=== PATIENT | male | born 1965 | race Caucasian/White ===

== ENCOUNTER → 2016-11-26 | Outpatient (CLI) | payer MEDICARE, MEDICAID ==
[~2016-11-26] MED LIST: ASPI81TA2 PO; LORA10TA7; OMEP-29; QUET150T3 PO; QUET25TA19; RANI150T7 PO
--- NOTE | 2016-11-26 14:30 | DI ---
Indication: ITS.REASON: M54.42 LUMBAGO W/ SCIATICA, LEFT SIDE LUMBAR SPINE COMP W/O BEND: Comparison: None Technique: AP lateral coned down lateral and both oblique views Findings: Patient shows mild disc space narrowing particularly at L1-4-5 with mild changes at L3-4. No acute vertebral body fractures are seen. No significant malalignments are noted. Oblique view showed mild degenerative changes in the posterior facet joints particularly at L45 and L5-S1 levels. Impression: Mild degenerative changes particularly at the L4-5 disc space level with some narrowing. No significant fractures or malalignments noted. .
== END ==
LOC: IMA 10:42
PROVIDERS: ATTEND Internal Medicine
DX: M54.42 Lumbago with sciatica, left side (principal); M51.36 Other intervertebral disc degeneration, lumbar region

== ENCOUNTER 2016-12-01 13:32 | Emergency (ER) | payer MEDICARE, MEDICAID ==
[~2016-12-01] VITALS: Ht 162.6 cm; Wt 65.5 kg
[~2016-12-01 13:32] MED LIST changes: -ASPI81TA2 PO; -QUET150T3 PO; -RANI150T7 PO
[2016-12-01 13:35] VITALS: Ht 162.6 cm; Wt 65.5 kg
[2016-12-01] MEDS ORDERED: NORMAL SALINE 1,000 ML IV ONE (13:57)
[2016-12-01] MEDS ORDERED: NITROGLYCERIN 0.4 MG SUBLINGUAL TABLET SL PRN (14:00)
[2016-12-01] MEDS ORDERED: ASPIRIN 81 MG CHEWABLE TABLET PO ONE (14:00)
[2016-12-01 14:05] LABS: BLOOD, URINE NEGATIVE (NEGATIVE); COLOR,URINE YELLOW (YELLOW); LEUKOCYTE ESTERASE ,URINE NEGATIVE (NEGATIVE); NITRITE,URINE NEGATIVE (NEGATIVE); UROBILINOGEN,URINE 0.2 EU/DL (NORMAL)
[2016-12-01] MEDS ORDERED: QUET150T3 PO (14:11)
[2016-12-01] MEDS ORDERED: ASPI81TA2 PO (14:11)
[2016-12-01 14:12] LABS: BASOPHILS % (AUTO) 0.5 % (0-2); EOSINOPHILS # (AUTO) 0.2 T/MM3 (0-0.5); HCT - HEMATOCRIT 44.7 % (41-53); HGB - HEMOGLOBIN 15.6 GM/DL (13.5-17.5); IMMATURE GRANULOCYTE # (AUTO) 0.06 T/MM3 (0.00-0.03); IMMATURE GRANULOCYTE % (AUTO) 0.7 % (0.0-0.5); MEAN CORPUSCULAR HGB 33.1 UUG (26-34); MEAN CORPUSCULAR HGB CONC(MCHC 34.9 GM/DL (31-37); MEAN CORPUSCULAR VOLUME 94.9 UM3 (80-100); MEAN PLATELET VOLUME 9.7 UM3 (9.4-12.4); MONOCYTES % (AUTO) 11.7 % (0-9.0); NEUTROPHILS #(AUTO)-ABSOLUTE 4.3 T/MM3 (1.8-7.7); NEUTROPHILS % (AUTO) 50.1 % (33-66); RED BLOOD COUNT 4.71 M/MM3 (4.50-5.90); WBC - WHITE BLOOD COUNT 8.6 T/MM3 (4.5-11.0)
[2016-12-01 14:15] LABS: INR 1.08 (0.77-1.03); PROTHROMBIN TIME 11.9 SEC (9.48-12.52)
[2016-12-01 14:16] LABS: ALBUMIN 4.7 G/DL (3.5-5.0); ALBUMIN/GLOBULIN RATIO 1.6 RATIO (1.1-2.2); ALKALINE PHOSPHATASE 48 U/L (38-126); ALT (SGPT) 34 U/L (21-72); ANION GAP 13 MEQ/L (5-15); AST (SGOT) 22 U/L (17-59); BUN/CREATININE RATIO 10 RATIO (6-26); CALCIUM 9.8 MG/DL (8.4-10.2); CHLORIDE 105 MEQ/L (98-107); CO2 - CARBON DIOXIDE 28 MEQ/L (22-30); CREATININE 0.9 MG/DL (0.8-1.5); GLOMERULAR FILTRATION RATE 89; GLUCOSE 108 MG/DL (75-110); POTASSIUM 3.9 MEQ/L (3.6-5); SODIUM 146 MEQ/L (134-144); TOTAL PROTEIN 7.6 G/DL (6.3-8.2)
--- OUTSIDE RECORDS SUMMARY | 2016-12-01 14:22 | XMS REPORT ---
Author Author Basim Chapman Organization [employer] Address Unknown Phone Unavailable Care Team Providers Care Soap Slabber Name Role Phone Basim Chapman CP Unavailable Allergies No Known Allergies Problems Problem Type Condition Code Onset Dates Condition Status Problem Allergic rhinitis, unspecified J30.9 Active Problem Hyperlipidemia, unspecified E78.5 Active Problem Major depressive disorder, single episode, unspecified F32.9 Active Medications No Known Medications Results No Known Results Summary Purpose eClinicalWorks Submission
--- OUTSIDE RECORDS SUMMARY | 2016-12-01 14:22 | XMS REPORT ---
Author Author Basim Chapman Organization [employer] Address Unknown Phone Unavailable Care Team Providers Care Billing Manager Name Role Phone Basim Chapman CP Unavailable Allergies No Known Allergies Problems Problem Type Condition Code Onset Dates Condition Status Problem Allergic rhinitis, unspecified J30.9 Active Problem Hyperlipidemia, unspecified E78.5 Active Problem Major depressive disorder, single episode, unspecified F32.9 Active Medications Medication Code System Code Instructions Start Date End Date Status Dosage Colace [facility] [address]-71 100 MG Orally every 12 hours Mar 30, 2016 1 capsule as needed for constipation Results No Known Results Summary Purpose eClinicalWorks Submission
--- OUTSIDE RECORDS SUMMARY | 2016-12-01 14:22 | XMS REPORT ---
Author Author Basim Chapman Organization [employer] Address Unknown Phone Unavailable Care Team Providers Care Extractions Technologist Name Role Phone Basim Chapman CP Unavailable Allergies No Known Allergies Problems Problem Type Condition Code Onset Dates Condition Status Problem Allergic rhinitis, unspecified J30.9 Active Problem Hyperlipidemia, unspecified E78.5 Active Problem Major depressive disorder, single episode, unspecified F32.9 Active Medications Medication Code System Code Instructions Start Date End Date Status Dosage BuPROPion HCl (SR) [facility] [address]-53 100 MG Orally once a day 1 tablet Seroquel XR [facility] [address]-34 150 MG Orally Once a day 1 tablet in the evening Colace [facility] [address]-03 100 MG Orally every 12 hours Mar 30, 2016 1 capsule as needed for constipation Results No Known Results Summary Purpose eClinicalWorks Submission
--- OUTSIDE RECORDS SUMMARY | 2016-12-01 14:22 | XMS REPORT ---
Author Author Basim Chapman Organization [employer] Address Unknown Phone Unavailable Care Team Providers Care Crop Consultant Name Role Phone Basim Chapman CP Unavailable Allergies, Adverse Reactions, Alerts Substance Reaction Event Type N.K.D.A. Info Not Available Non Drug Allergy Problems Problem Type Condition Code Onset Dates Condition Status Assessment Tobacco use Z72.0 Active Assessment Encounter for immunization Z23 Active Problem Allergic rhinitis, unspecified J30.9 Active Problem Hyperlipidemia, unspecified E78.5 Active Problem Major depressive disorder, single episode, unspecified F32.9 Active Assessment Constipation, unspecified K59.00 Active Assessment Anemia, unspecified D64.9 Active Assessment Hyperlipidemia, unspecified E78.5 Active Assessment Major depressive disorder, single episode, unspecified F32.9 Active Medications Medication Code System Code Instructions Start Date End Date Status Dosage BuPROPion HCl (SR) [facility] [address]-57 100 MG Orally once a day 1 tablet Colace [facility] [address]-09 100 MG Orally every 12 hours Mar 30, 2016 1 capsule as needed for constipation Seroquel XR [facility] [address]-11 150 MG Orally Once a day 1 tablet in the evening Procedures Procedure Coding System Code Date OFFICE VISIT, EST-LOW COMPLEXITY (15 MIN.) CPT-4 59409 Apr 29, 2016 Fluzone IIV4 Pfree (age 3yr & older) CPT-4 72615 Apr 29, 2016 [facility] visit Established Patient CPT-4 G0467 Apr 29, 2016 TOBACCO USE, SMOKING, ASSESS CPT-4 1000F Apr 29, 2016 ADMINISTRATION, 1ST IMMUNIZATION CPT-4 68582 Apr 29, 2016 Vital Signs Date/Time: Apr 29, 2016 Temperature 98.2 F Height 62.0 in Weight 123.4 lbs Blood Pressure Diastolic 76 mm Hg Blood Pressure Systolic 124 mm Hg Cardiac Monitoring Heart Rate 78 /min BMI 22.57 Index Oximetry 98 % Respiratory Rate 16 /min Results No Known Results Immunizations Vaccine Administration Date Fluzone IIV4 Pfree (age 3yr & older) Apr 29, 2016 Summary Purpose eClinicalWorks Submission
--- OUTSIDE RECORDS SUMMARY | 2016-12-01 14:22 | XMS REPORT ---
Author Author Basim Chapman Organization [employer] Address Unknown Phone Unavailable Care Team Providers Care Special Weapons And Tactics Officer Name Role Phone Basim Chapman CP Unavailable Allergies No Known Allergies Problems Problem Type Condition Code Onset Dates Condition Status Problem Allergic rhinitis, unspecified J30.9 Active Problem Hyperlipidemia, unspecified E78.5 Active Problem Major depressive disorder, single episode, unspecified F32.9 Active Medications No Known Medications Results No Known Results Summary Purpose eClinicalWorks Submission
--- OUTSIDE RECORDS SUMMARY | 2016-12-01 14:22 | XMS REPORT ---
Author Author Basim Chapman Organization [employer] Address Unknown Phone Unavailable Care Team Providers Care Cut Off Sawyer Name Role Phone Basim Chapman CP Unavailable Allergies, Adverse Reactions, Alerts Substance Reaction Event Type N.K.D.A. Info Not Available Non Drug Allergy Problems Problem Type Condition Code Onset Dates Condition Status Assessment Major depressive disorder, single episode, unspecified F32.9 Active Assessment Auditory hallucinations R44.0 Active Problem Hyperlipidemia, unspecified E78.5 Active Assessment Hyperlipidemia, unspecified E78.5 Active Medications Medication Code System Code Instructions Start Date End Date Status Dosage Seroquel XR [facility] [address]-47 150 MG Orally Once a day 1 tablet in the evening BuPROPion HCl (SR) [facility] [address]-98 100 MG Orally once a day 1 tablet Loratadine [facility] [address]-36 10 MG Orally Once a day 1 tablet Multivital [facility] [address] Orally not defined Seroquel [facility] [address]-63 25 MG Orally Once a day 1 tablet Fish Oil [facility] [address]-84 1000 MG Orally Once a day 1 capsule Procedures Procedure Coding System Code Date OFFICE VISIT, EST-LOW COMPLEXITY (15 MIN.) CPT-4 87709 November 18, 2015 [facility] visit Established Patient CPT-4 G0467 November 18, 2015 Vital Signs Date/Time: November 18, 2015 Temperature 97.0 F Height 62.0 in Weight 126.4 lbs Blood Pressure Diastolic 68 mm Hg Blood Pressure Systolic 114 mm Hg Cardiac Monitoring Heart Rate 76 /min BMI 23.12 Index Oximetry 98 % Respiratory Rate 16 /min Results No Known Results Summary Purpose eClinicalWorks Submission
--- OUTSIDE RECORDS SUMMARY | 2016-12-01 14:22 | XMS REPORT ---
Author Author Basim Chapman Organization [employer] Address Unknown Phone Unavailable Care Team Providers Care Reducing System Operator Name Role Phone Basim Chapman CP Unavailable Allergies, Adverse Reactions, Alerts Substance Reaction Event Type N.K.D.A. Info Not Available Non Drug Allergy Problems Problem Type Condition Code Onset Dates Condition Status Assessment Frequency of micturition R35.0 Active Assessment Nocturia R35.1 Active Assessment Painful micturition, unspecified R30.9 Active Assessment Major depressive disorder, single episode, unspecified F32.9 Active Assessment Encounter for immunization Z23 Active Medications Medication Code System Code Instructions Start Date End Date Status Dosage Seroquel XR [facility] [address]-49 150 MG Orally Once a day 1 tablet in the evening Loratadine [facility] [address]-97 10 MG Orally Once a day 1 tablet Seroquel [facility] [address]-40 25 MG Orally Once a day 1 tablet Fish Oil [facility] [address]-84 1000 MG Orally Once a day 1 capsule Flomax [facility] [address]-24 0.4 MG Orally Once a day Apr 29, 2015 Jul 28, 2015 1 capsule 30 minutes after the same meal each day Multivital [facility] [address] Orally not defined BuPROPion HCl (SR) [facility] [address]-79 100 MG Orally once a day 1 tablet Procedures Procedure Coding System Code Date OFFICE VISIT, EST-MOD. COMPLEXITY (25 MIN) CPT-4 48968 Apr 29, 2015 FLU VACCINE NO PRESERV 3 & > CPT-4 44256 Apr 29, 2015 [facility] visit Established Patient CPT-4 G0467 Apr 29, 2015 ADMINISTRATION, 1ST IMMUNIZATION CPT-4 25008 Apr 29, 2015 Vital Signs Date/Time: Apr 29, 2015 Height 62.0 in Weight 122.4 lbs Temperature 98.1 F Blood Pressure Diastolic 76 mm Hg Blood Pressure Systolic 116 mm Hg Cardiac Monitoring Heart Rate 76 /min BMI 22.38 Index Oximetry 97 % Respiratory Rate 16 /min Results Name Result Date Reference Range Unit Abnormality Flag Comprehensive Metabolic Panel (CMP) Immunizations Vaccine Administration Date Influenza shot 3 y.o. and older Apr 29, 2015 Summary Purpose eClinicalWorks Submission
--- OUTSIDE RECORDS SUMMARY | 2016-12-01 14:22 | XMS REPORT ---
Author Author Basim Chapman Organization e[employer] Address Unknown Phone Unavailable Care Team Providers Care Research Program Coordinator Name Role Phone Basim Chapman CP Unavailable Allergies No Known Allergies Problems Problem Type Condition Code Onset Dates Condition Status Assessment Painful micturition, unspecified R30.9 Active Medications Medication Code System Code Instructions Start Date End Date Status Dosage Fish Oil [facility] [address]-79 1000 MG Orally Once a day 1 capsule Seroquel XR [facility] [address]-08 150 MG Orally Once a day 1 tablet in the evening Multivital [facility] [address] Orally not defined Flomax [facility] [address]-90 0.4 MG Orally Once a day Apr 29, 2015 Jul 28, 2015 1 capsule 30 minutes after the same meal each day BuPROPion HCl (SR) [facility] [address]-99 100 MG Orally once a day 1 tablet Seroquel [facility] [address]-39 25 MG Orally Once a day 1 tablet Loratadine [facility] [address]-00 10 MG Orally Once a day 1 tablet Procedures Procedure Coding System Code Date URINE CULTURE CPT-4 69745 Apr 29, 2015 SED RATE CPT-4 34877 Apr 29, 2015 COMPLETE CBC W/AUTO DIFF WBC CPT-4 21057 Apr 29, 2015 URINALYSIS WITH MICROSCOPIC CPT-4 32597 Apr 29, 2015 PSA NO REFLEX CPT-4 88167 Apr 29, 2015 Results Name Result Date Reference Range Unit Abnormality Flag CBC With Platelet and Differential Urine Culture Summary Purpose eClinicalWorks Submission
--- OUTSIDE RECORDS SUMMARY | 2016-12-01 14:22 | XMS REPORT ---
Author Author Basim Chapman Organization e[employer] Address Unknown Phone Unavailable Care Team Providers Care Correction Officer Penitentiary Name Role Phone Basim Chapman CP Unavailable Allergies No Known Allergies Problems Problem Type Condition Code Onset Dates Condition Status Problem Allergic rhinitis, unspecified J30.9 Active Problem Hyperlipidemia, unspecified E78.5 Active Problem Major depressive disorder, single episode, unspecified F32.9 Active Medications Medication Code System Code Instructions Start Date End Date Status Dosage Colace [facility] [address]-72 100 MG Orally every 12 hours Mar 30, 2016 1 capsule as needed for constipation Results No Known Results Summary Purpose eClinicalWorks Submission
--- OUTSIDE RECORDS SUMMARY | 2016-12-01 14:22 | XMS REPORT ---
Author Author Kennedi Grayson Organization e[employer] Address Unknown Phone Unavailable Care Team Providers Care Missile Pad Mechanic Name Role Phone Kennedi Grayson CP Unavailable Allergies No Known Allergies Problems Problem Type Condition ICD-9 Code Onset Dates Condition Status Assessment Screening for lipoid disorders V77.91 Active Assessment Depressive disorder, not elsewhere classified 311 Active Medications Medication Code System Code Instructions Start Date End Date Status Dosage Fish Oil [facility] [address]-69 1000 MG Orally Once a day 1 capsule Seroquel XR [facility] [address]-96 150 MG Orally Once a day 1 tablet in the evening BuPROPion HCl (SR) [facility] [address]-74 100 MG Orally once a day 1 tablet Seroquel [facility] [address]-52 25 MG Orally Once a day 1 tablet Loratadine [facility] [address]-85 10 MG Orally Once a day 1 tablet Multivital [facility] [address] Orally not defined Procedures Procedure Coding System Code Date LIPID PANEL CPT-4 97824 January 10, 2015 CMP CPT-4 97683 January 10, 2015 Results Name Result Date Reference Range Unit Abnormality Flag In House Urinalysis, automated Summary Purpose eClinicalWorks Submission
--- OUTSIDE RECORDS SUMMARY | 2016-12-01 14:22 | XMS REPORT ---
Author Author Basim Chapman Organization [employer] Address Unknown Phone Unavailable Care Team Providers Care Transmission Worker Name Role Phone Basim Chapman CP Unavailable Allergies No Known Allergies Problems Problem Type Condition Code Onset Dates Condition Status Problem Allergic rhinitis, unspecified J30.9 Active Problem Hyperlipidemia, unspecified E78.5 Active Problem Major depressive disorder, single episode, unspecified F32.9 Active Medications Medication Code System Code Instructions Start Date End Date Status Dosage Seroquel XR [facility] [address]-50 150 MG Orally Once a day 1 tablet in the evening BuPROPion HCl (SR) [facility] [address]-51 100 MG Orally once a day 1 tablet Colace [facility] [address]-69 100 MG Orally every 12 hours Mar 30, 2016 1 capsule as needed for constipation Results No Known Results Summary Purpose eClinicalWorks Submission
--- OUTSIDE RECORDS SUMMARY | 2016-12-01 14:22 | XMS REPORT ---
Author Author Kennedi Grayson [facility] eClinicalWorks Address Unknown Phone Unavailable Care Team Providers Care Ship Laborer Name Role Phone Kennedi Grayson CP Unavailable Allergies No Known Allergies Problems Problem Type Condition ICD-9 Code Onset Dates Condition Status Assessment Depressive disorder, not elsewhere classified 311 Active Medications Medication Code System Code Instructions Start Date End Date Status Dosage Multivital [facility] [address] Orally not defined Fish Oil [facility] [address]-71 1000 MG Orally Once a day 1 capsule BuPROPion HCl (SR) [facility] [address]-29 100 MG Orally once a day 1 tablet Loratadine [facility] [address]-21 10 MG Orally Once a day 1 tablet Seroquel XR [facility] [address]-31 150 MG Orally Once a day 1 tablet in the evening Seroquel [facility] [address]-84 25 MG Orally Once a day 1 tablet Procedures Procedure Coding System Code Date TSH CPT-4 54517 January 10, 2015 COMPLETE CBC W/AUTO DIFF WBC CPT-4 89424 January 10, 2015 Results Name Result Date Reference Range Unit Abnormality Flag CBC With Platelet and Differential ----Absolute Eosinophils 0.04 20150110 0.00-0.50 10*3 ----Absolute Monocytes 0.92 20150110 0.30-1.00 10*3 ----Neutrophils 55 20150110 51-75 % ----Absolute Basophils 0.03 [id number] 0.00-0.20 10*3 ----MPV 10.5 20150110 8.8-14.8 fL ----Monocytes 14 20150110 4-11 % H ----RDW 13.3 20150110 11.5-14.5 % ----Lymphocytes 31 20150110 20-46 % ----MCHC 35.3 20150110 32.0-36.0 g/dL ----MCH 34.3 20150110 27.0-32.0 pg H ----MCV 97.0 20150110 82.0-99.0 fL ----Immature Granulocytes 0.1 [id number] 0.0-1.0 % ----Platelet Count 239 20150110 150-400 K/uL ----Absolute Lymphocytes 2.06 [id number] 0.80-3.30 10*3 ----Absolute Neutrophils 3.65 48032900 1.90-7.00 10*3 ----Eosinophils 1 [id number] 0-4 % ----Basophils 0 70115288 0-2 % ----WBC 6.7 [id number] 4.8-10.8 K/uL ----RBC 4.70 [id number] 4.60-6.20 M/uL ----HGB 16.1 20150110 14.0-18.0 g/dL ----HCT 45.6 20150110 42.0-52.0 % TSH ----TSH 0.39 20150110 0.35-4.94 uIU/mL Summary Purpose eClinicalWorks Submission
--- OUTSIDE RECORDS SUMMARY | 2016-12-01 14:22 | XMS REPORT ---
Author Author Basim Chapman Organization eClinicalWorks Address Unknown Phone Unavailable Care Team Providers Care Steamtable Attendant Railroad Name Role Phone Basim Chapman CP Unavailable Allergies No Known Allergies Problems Problem Type Condition Code Onset Dates Condition Status Problem Allergic rhinitis, unspecified J30.9 Active Problem Hyperlipidemia, unspecified E78.5 Active Problem Major depressive disorder, single episode, unspecified F32.9 Active Medications Medication Code System Code Instructions Start Date End Date Status Dosage Colace [facility] [address]-90 100 MG Orally every 12 hours Mar 30, 2016 1 capsule as needed for constipation Results No Known Results Summary Purpose eClinicalWorks Submission
--- OUTSIDE RECORDS SUMMARY | 2016-12-01 14:23 | XMS REPORT ---
Author Author Basim Chapman Organization eClinicalWorks Address Unknown Phone Unavailable Care Team Providers Care Finishing Supervisor Name Role Phone Basim Chapman CP Unavailable Allergies, Adverse Reactions, Alerts Substance Reaction Event Type N.K.D.A. Info Not Available Non Drug Allergy Problems Problem Type Condition Code Onset Dates Condition Status Problem Allergic rhinitis, unspecified J30.9 Active Problem Hyperlipidemia, unspecified E78.5 Active Problem Major depressive disorder, single episode, unspecified F32.9 Active Assessment Major depressive disorder, single episode, unspecified F32.9 Active Assessment Constipation, unspecified K59.00 Active Medications Medication Code System Code Instructions Start Date End Date Status Dosage Colace [facility] [address]-84 100 MG Orally every 12 hours Mar 30, 2016 1 capsule as needed for constipation Procedures Procedure Coding System Code Date OFFICE VISIT, EST-LOW COMPLEXITY (15 MIN.) CPT-4 29468 Mar 30, 2016 [facility] visit Established Patient CPT-4 G0467 Mar 30, 2016 Vital Signs Date/Time: Mar 30, 2016 Temperature 97.7 F Height 62.0 in Weight 117.8 lbs Blood Pressure Diastolic 60 mm Hg Blood Pressure Systolic 126 mm Hg Cardiac Monitoring Heart Rate 89 /min BMI 21.54 Index Oximetry 98 % Results No Known Results Summary Purpose eClinicalWorks Submission
--- OUTSIDE RECORDS SUMMARY | 2016-12-01 14:23 | XMS REPORT ---
Author Author eKnnedi Grayson Organization eClinicalWorks Address Unknown Phone Unavailable Care Team Providers Care Cone Picker Name Role Phone Kennedi Grayson CP Unavailable Allergies, Adverse Reactions, Alerts Substance Reaction Event Type N.K.D.A. Info Not Available Non Drug Allergy Problems Problem Type Condition ICD-9 Code Onset Dates Condition Status Assessment Screening for lipoid disorders V77.91 Active Assessment Depressive disorder, not elsewhere classified 311 Active Medications Medication Code System Code Instructions Start Date End Date Status Dosage Loratadine [facility] [address]-73 10 MG Orally Once a day 1 tablet BuPROPion HCl (SR) [facility] [address]-60 100 MG Orally once a day 1 tablet Multivital [facility] [address] Orally not defined Fish Oil [facility] [address]-74 1000 MG Orally Once a day 1 capsule Seroquel [facility] [address]-74 25 MG Orally Once a day 1 tablet Seroquel XR [facility] [address]-29 150 MG Orally Once a day 1 tablet in the evening Procedures Procedure Coding System Code Date OFFICE VISIT, CHARHOUSE WORKER-LOW COMPLEXITY (30 MIN.) CPT-4 32443 January 08, 2015 [facility] visit New Patient CPT-4 G0466 January 08, 2015 Vital Signs Date/Time: January 08, 2015 Height 62.0 in Weight 125.8 lbs Temperature 98.6 F Blood Pressure Diastolic 68 mm Hg Blood Pressure Systolic 120 mm Hg Cardiac Monitoring Heart Rate 68 /min BMI 23.01 Index Respiratory Rate 16 /min Results No Known Results Summary Purpose eClinicalWorks Submission
[2016-12-01 14:27] LABS: PROBNP 31 PG/ML (0-175)
--- NOTE | 2016-12-01 14:47 | DI ---
INDICATION: ITS.REASON: chest pain PROCEDURE: CHEST 2-VIEWS UPRIGHT (PA \T\ LAT) Encounter: Initial COMPARISON: July 25, 2009 FINDINGS: The lungs are clear without evidence of focal abnormal airspace opacity. There is no pleural effusion or pneumothorax. The heart size, mediastinal contours and pulmonary vascularity are within normal limits. There is no significant skeletal abnormality. IMPRESSION: No acute cardiopulmonary disease. .
--- NOTE | 2016-12-01 14:47 | ERPDOC ---
Departure Disposition Decision Date: December 01, 2016 Disposition Decision Time: 14:47 Disposition: 01 DISCHARGED HOME, SELF-CARE Impression Impression Impression: Primary Impression: Chest pain Additional Impression: Reflux esophagitis Severity: Moderate Condition: Improved Seen By: Physician only Referrals: ADAM ROWE MD (Family) Patient Instructions: Chest Pain (ED) Problems/Meds/Labs Reviewed?: Yes Medications reviewed and manag: Yes Additional Instructions: Ranitidine 150 mg, one tablet twice daily for reflux. Please follow up with cardiology. Dr. Cardenas is on-call. His number is [phone] Follow up care ordered?: Yes Mental Status: Alert, Oriented Scripts Ranitidine HCl (Ranitidine HCl) 150 Mg Tablet 150 MG PO BID, #60 TAB Take 1 tablet, by mouth, 2 times a day. Prov: CHELSEA AGUILAR MD 12/01/16 HPI - Cardiac General Chief Complaint: Chest Pain Stated Complaint: CHEST PAIN,LIGHTHEADEDRIGHT ARM NUMBNESS VISION [place] Time Seen by Provider: 13:57 HPI - Cardiac General Initial Comments 51-year-old male presents with chest pain. Patient had chest pain yesterday afternoon and evening after he ate some barbecue chips. He did have an episode of it this morning as well and asked to be brought in from [facility] to be seen. He states that if he eats barbecue chips he often does get heartburn. He is not taking any medication for heartburn. He is a little bit nervous about the reason for his chest pain, worrying that it might be his heart. He has no previous history of heart problems and does not smoke. Aspirin Today: 81 mg x 4 Allergies: Coded Allergies: No Known Drug Allergies (Verified Allergy, Unknown, 05/21/13) Past History Past Medical History Male: UTI Psychological: personality disorder Surgical History Denies Surgeries General: other Family History Family PMH: FOUND: other Vaccines Hx Influenza Vaccination: Yes (FALL 2011) Hx Pneumococcal Vaccination: No (UNKNOWN) Social History Smoking Status: Never smoker Alcohol Intake: none Record Review Pertinent history updated: Yes Review of Systems Cardiovascular Cardiac: see HPI Pulmonary Respiratory: see HPI GI Upper Abdomen: see HPI All other Systems All Other Systems: Reviewed and Negative Physical Exam General General Nourishment: well nourished, well developed, appears stated age, no acute distress General Body Habitus: well groomed Vitals and Pain First Documented Vital Signs Date Time Temp Pulse Resp B/P Pulse Ox O2 Delivery O2 Flow Rate FiO2 12/01/16 13:35 97.7 97 18 155/95 98 Room Air Weight: Kilograms: 65.500 Height (feet): 5 Height (inches): 4.00 Triage Pain Scale: Normal Exams: Chest/Resp: Clear all katz, with good airflow, and symmetry bilaterally CV: Regular rate and rhythm, without murmur or gallop, Pulses 2+ all extremities, capillary refill, <2 seconds all ext., no pedal edema noted Abdomen: Bowel sounds positive, soft, non-tender, non-distended, no hepatosplenomegaly, masses or bruits noted Neurologic: Patient is alert, and oriented, cranial nerves, motor/sensory/ cerebellar, exams w/o gross deficits, to observation Differential Diagnoses Considering: Acute [place], Anxiety/Panic, Angina, Atrial Fibrillation, CHF, Pericarditis, PSVT, Pulmonary Edema, Pulmonary Embolus, Ventricular Tachycardia Progress Results/Orders Orders Procedure Category Date Status Time Cbc W/Auto LAB 12/01/16 Complete Diff-Reflex Manual 13:57 Cmp - Comprehensive LAB 12/01/16 Complete Metabolic 13:57 Probnp LAB 12/01/16 Complete 13:57 Troponin I W LAB 12/01/16 Complete Hemolysis Index 13:57 INR LAB 12/01/16 Complete 13:57 Ua, Dip Wreflex LAB 12/01/16 Complete Microsc & Call Center Agent 13:57 D-Dimer LAB 12/01/16 Complete 13:57 EKG EKG 12/01/16 Taken 13:57 Chest, Pa & Lateral RAD 12/01/16 Taken 13:57 Iv Lock (Ed Only) EDM 12/01/16 Transmitted 13:57 Normal Saline (Normal PHA 12/01/16 In Process Saline Iv) 13:57 Aspirin (Asa) PHA 12/01/16 Complete 14:00 Nitroglycerin PHA 12/01/16 In Process (Nitrostat) 14:00 Lab Results Laboratory Tests Test 12/01/16 13:59 White Blood Count 8.6T/MM3 Red Blood Count 4.71M/MM3 Hemoglobin 15.6GM/DL Hematocrit 44.7% Mean Corpuscular Volume 94.9UM3 Mean Corpuscular Hemoglobin 33.1UUG Mean Corpuscular Hemoglobin Concent 34.9GM/DL RDW Standard Deviation 44.9FL Platelet Count 297T/MM3 Mean Platelet Volume 9.7UM3 Immature Granulocyte % (Auto) 0.7% Neutrophils (%) (Auto) 50.1% Lymphocytes (%) (Auto) 35.0% Monocytes (%) (Auto) 11.7% Eosinophils (%) (Auto) 2.0% Basophils (%) (Auto) 0.5% Absolute Immature Granulocyte (auto 0.06T/MM3 Absolute Neutrophils (auto) 4.3T/MM3 Absolute Lymphocytes (auto) 3.0T/MM3 Absolute Monocytes (auto) 1.0T/MM3 Absolute Eosinophils (auto) 0.2T/MM3 Absolute Basophils (auto) 0.0T/MM3 Prothromb Time International Ratio 1.08 D-Dimer < 150NG/ML Urine Collection Type Cleancatch-midstream Urine Color Yellow Urine Turbidity Clear Urine pH 6.0 Urine Specific Miles <=1.005 Urine Protein Negative Urine Glucose (UA) Negative Urine Ketones Negative Urine Blood Negative Urine Nitrite Negative Urine Bilirubin Negative Urine Urobilinogen 0.2EU/DL Urine Leukocyte Esterase Negative Urinalysis Comment Microscopic not ind. Turbidity < 20 Sodium Level 146MEQ/L Potassium Level 3.9MEQ/L Chloride Level 105MEQ/L Carbon Dioxide Level 28MEQ/L Anion Gap 13MEQ/L Blood Urea Nitrogen 9.0MG/DL Creatinine 0.9MG/DL Glomerular Filtration Rate Calc 89 BUN/Creatinine Ratio 10RATIO Glucose Level 108MG/DL Calculated Osmolality 281MOSM/KG Calcium Level 9.8MG/DL Total Bilirubin 0.60MG/DL Icterus Index < 2 Aspartate Amino Transf (AST/SGOT) 22U/L Alanine Aminotransferase (ALT/SGPT) 34U/L Alkaline Phosphatase 48U/L Troponin I < 0.012ng/ml AB-Rmn-V-Type Natriuretic Peptide 31PG/ML Total Protein 7.6G/DL Albumin 4.7G/DL Globulin 2.9G/DL Albumin/Globulin Ratio 1.6RATIO Chemistry Specimen Hemolysis < 15 Medications Current ED Medications Sodium Chloride (Normal Saline IV) 1,000 ml @ 1,000 mls/hr Q1H ONCE IV Last administered on 12/01/16t 14:11; Start 12/01/16 at 13:57; Stop 12/01/16 at 14:56 Aspirin (ASA) 324 mg O ONCE PO ; Start 12/01/16 at 14:00; Stop 12/01/16 at 14: 01; Status DC Nitroglycerin (Nitrostat) 0.4 mg Q5MIN PRN SL CHEST PAIN; Start 12/01/16 at 14: 00 Progress Progress Labs including CBC CMP and troponin returned normal. Chest x-ray is appropriate. EKG is also appropriate. Patient be given ranitidine 150 mg twice a day. This may help with his reflux. He does need to see Dr. Cardenas for follow -up and for a stress test. Patient and his caregiver are aware of the need for follow-up with cardiology. CHELSEA AGUILAR MD December 01, 2016 14:47
[2016-12-01] MEDS ORDERED: RANI150T7 PO (14:51)
[2016-12-01 14:55] VITALS: BP 119/79; PULSE 82; RESP 16; TEMP 97.7; O2SAT 95
== END 2016-12-01 14:55 | disposition home or self-care (01) ==
LOC: ED 13:32
DX: R07.9 Chest pain, unspecified (principal); K21.0 Gastro-esophageal reflux disease with esophagitis
CPT/HCPCS: 71020; 80053; 81003; 83880; 84484; 85025; 85379; 85610; 93005; 96360; 99284; J7030

== ENCOUNTER 2017-11-02 15:26 | Inpatient (IN) ==
--- NOTE | 2017-11-02 15:39 | Emergency Department Report ---
General Adult HPI - General Chief complaint: Nausea/Vomiting/Diarrhea Stated complaint: throwing up blood,back pain, arm pain, cp Time Seen by Provider: 11/02/17 15:38 - Related Data Home Medications Medication Instructions Recorded Confirmed Paliperidone Sustenna [Invega 1 unit SQ Q30D 10/05/17 11/02/17 Sustenna] Albuterol HFA Inhaler [Ventolin 1 puff INH DAILY PRN 10/31/17 11/02/17 Hfa 90 mcg/actuation] Baclofen [Lioresal] 10 g PO TID PRN 10/31/17 11/02/17 Tamsulosin [Flomax] 0.4 mg PO HS 10/31/17 11/02/17 Previous Rx's Medication Instructions Recorded Metoclopramide HCl [Reglan] 10 mg PO QID PRN #30 tab 10/29/17 Allergies Allergy/AdvReac Type Severity Reaction Status Date / Time No Known Drug Allergies Allergy Unknown Verified 11/02/17 15:30 PFSH Patient Stated Medical History Sleep Apnea No Gastroesophageal Reflux Yes Disease Hx Benign Prostatic Yes Hyperplasia Depression Yes Paranoid Disorder Yes Schizophrenia Yes Other Behavioral Health Yes: ADJUSTMENT DISORDER Clinic Medical History (Last Updated 09/20/17 @ 14:51 by Liz Bragg APRN) Anxiety (Acute Medical) Tobacco abuse (Acute Medical) Surgical History: -tonsilectomy Family History: Family History (Last Updated 09/20/17 @ 15:06 by Liz Bragg APRN) Father Alcoholism Mother Alzheimer's dementia, late onset - Social History Smoking status: Current every day smoker Substance use type: former substance user Alcohol intake: former Does patient use chewing tobacco?: No Course Vital Signs Temperature 98.7 F 11/02/17 15:30 Pulse Rate 119 H 11/02/17 15:30 Respiratory Rate 20 11/02/17 15:30 Blood Pressure 174/91 H 11/02/17 15:30 Pulse Oximetry 99 11/02/17 15:30 Temperature 98.7 F 11/02/17 15:30 Pulse Rate 119 H 11/02/17 15:30 Respiratory Rate 20 11/02/17 15:30 Blood Pressure 174/91 H 11/02/17 15:30 Pulse Oximetry 99 11/02/17 15:30 Medical Decision Making - Lab Data Result diagrams: 11/02/17 15:57 11/02/17 15:57 Lab Results 11/02/17 11/02/17 Range/Units 15:57 15:57 WBC 8.8 (4.5-11.0) T/MM3 RBC 4.07 L (4.50-5.90) M/MM3 Hgb 13.2 L (13.5-17.5) GM/DL Hct 38.8 L (41-53) % MCV 95.3 (80-100) UM3 MCH 32.4 (26-34) UUG MCHC 34.0 (31-37) GM/DL RDW Std Deviation 43.9 (36.9-50.2) FL Plt Count 247 (130-400) T/MM3 MPV 9.7 (9.4-12.4) UM3 Immature Gran % (Auto) 0.2 (0.0-0.5) % Neut % (Auto) 59.4 (33-66) % Lymph % (Auto) 22.8 L (23-45) % [place] % (Auto) 15.1 H (0-9.0) % Eos % (Auto) 2.2 (0-4) % Baso % (Auto) 0.3 (0-2) % Neut # (Auto) 5.2 (1.8-7.7) T/MM3 Lymph # (Auto) 2.0 (1-4.8) T/MM3 [place] # (Auto) 1.3 H (0-0.8) T/MM3 Eos # (Auto) 0.2 (0-0.5) T/MM3 Baso # (Auto) 0.0 (0-0.2) T/MM3 Abs Immat Gran (auto) 0.02 (0.00-0.03) T/MM3 Turbidity < 20 (0-20) Sodium 143 (134-144) MEQ/L Potassium 3.6 (3.6-5) MEQ/L Chloride 102 (98-107) MEQ/L Carbon Dioxide 28 (22-30) MEQ/L Anion Gap 13 (5-15) meq/L Creatinine 0.8 (0.8-1.5) mg/dL GFR Calculation 101 BUN/Creatinine Ratio 11 (6-26) RATIO Glucose 121 H (75-110) MG/DL Calculated Osmolality 275 (261-280) MOSM/KG Calcium 9.2 (8.4-10.2) MG/DL Total Bilirubin 0.40 (0.20-1.30) MG/DL Icterus Index < 2 (0-7) AST 14 L (17-59) U/L ALT 13 (1-50) U/L Alkaline Phosphatase 59 (38-126) U/L Troponin I < 0.012 (0-0.12) ng/ml Total Protein 7.1 (6.3-8.2) g/dL Albumin 4.2 (3.5-5.0) g/dL Globulin 2.9 (2.4-3.6) G/DL Albumin/Globulin Ratio 1.4 (1.1-2.2) RATIO Specimen Hemolysis < 15 (0-25) Disposition Prescriptions: No Action Metoclopramide HCl [Reglan] 10 mg PO QID PRN #30 tab PRN Reason: n/v/cramps Tamsulosin [Flomax] 0.4 mg PO HS Albuterol HFA Inhaler [Ventolin Hfa 90 mcg/actuation] 1 puff INH DAILY PRN PRN Reason: Prn Orders Baclofen [Lioresal] 10 g PO TID PRN PRN Reason: Mouth Pain Paliperidone Sustenna [Invega Sustenna] 1 unit SQ Q30D Referrals: Basim Chapman DO [Primary Care Provider] -
[2017-11-02] MEDS ORDERED: KETOROLAC 60 MG/2 ML INJECTION IM ONE (15:47)
--- OUTSIDE RECORDS SUMMARY | 2017-11-02 16:09 | External Medical Summary ---
:1965 Author Organization [employer] Care Team Providers Name Role Phone Basim Chapman Provider Role Unavailable Allergies No Known Allergies Problems Problem Type Condition Code Onset Dates Condition Status Problem Allergic rhinitis, unspecified J30.9 Active Problem Hyperlipidemia, unspecified E78.5 Active Problem Major depressive disorder, single F32.9 Active episode, unspecified Medications Medication Code Code Instructions Start End Status Dosage System Date Date Seroquel XR NDC 30243-19 150 MG Orally 1 tablet in the 81-39 Once a day evening BuPROPion HCl NDC 95777-87 100 MG Orally 1 tablet (SR) 10- [place] [address]-77 100 MG Orally Mar 13, 1 capsule as 87-30 every 12 hours 2015 needed for constipation Results No Known Results Summary Purpose [employer] Submission
--- OUTSIDE RECORDS SUMMARY | 2017-11-02 16:09 | External Medical Summary ---
:1965 Author Organization [employer] Care Team Providers Name Role Phone Basim Chapman Provider Role Unavailable Allergies No Known Allergies Problems Problem Type Condition Code Onset Dates Condition Status Problem Allergic rhinitis, unspecified J30.9 Active Problem Hyperlipidemia, unspecified E78.5 Active Problem Major depressive disorder, single F32.9 Active episode, unspecified Medications No Known Medications Results No Known Results Summary Purpose [employer] Submission
--- OUTSIDE RECORDS SUMMARY | 2017-11-02 16:09 | External Medical Summary ---
:1965 Author Organization [employer] Care Team Providers Name Role Phone Basim Chapman Provider Role Unavailable Allergies No Known Allergies Problems Problem Type Condition Code Onset Dates Condition Status Problem Allergic rhinitis, unspecified J30.9 Active Problem Hyperlipidemia, unspecified E78.5 Active Problem Major depressive disorder, single F32.9 Active episode, unspecified Medications Medication Code Code Instructions Start End Date Status Dosage System Date Colace [facility] 98058-27 100 MG Orally Mar 30, capsule as 87-30 every 12 hours 2015 needed for constipation Results No Known Results Summary Purpose [employer] Submission
--- NOTE | 2017-11-02 16:33 | XRay Report ---
INDICATION: chest discomfort PROCEDURE: CHEST 2-VIEWS UPRIGHT (PA & LAT) Encounter: Initial COMPARISON: Chest x-ray dated October 29, 2017 and chest x-ray dated October 31, 2017 FINDINGS: Left lower lobe airspace disease is slightly worsened with a new small left effusion. Right lung is stable and grossly clear. No pneumothorax. Heart size and mediastinal contours are stable. Pulmonary vascularity is normal. Impression: Slightly worsened left lower lobe pneumonia. .
[2017-11-02] MEDS: SALINE FLUSH 10ml SYRINGE IVF PRN ×2 (17:08→18:22)
[2017-11-02] MEDS ORDERED: SALINE FLUSH 10ml SYRINGE ONE (17:18)
[2017-11-02] MEDS ORDERED: IOHEXOL 350mg/ml 75ml INJECTION ONE (17:18)
[2017-11-02] MEDS ORDERED: ENOXAPARIN 80 MG/0.8 ML INJECTION SQ ONE (18:18)
[2017-11-02] MEDS ORDERED: FentaNYL 100 MCG/2 ML INJECTION IVP ONE (18:23)
[2017-11-02] MEDS ORDERED: ALBUTEROL/IPRATROPIUM 2.5mg-0.5mg/3ml NEB AEROSOL PRN (19:35)
[2017-11-02] MEDS: FentaNYL 100 MCG/2 ML INJECTION IVP PRN (20:40)
--- NOTE | 2017-11-02 20:44 | History & Physical Report ---
History of Present Illness Date: 11/02/17 Chief complaint: pulmonary emboli HPI: patient is a pleasant 52yo male known to our clinic. he has a long history of smoking and has chronic borderline cognitive function and the latter does limit the history considerably. he frequently changes his story and changes his answers to review of systems questions. best as we can tell he was in his usual state of health until a few days ago. he developed localized pain at that time just above the pelvis on the left side in abdominal/side area. it is possible he may have had some chest pain initially at that time but it's not for certain and this doesn't appear to have been a major aspect of the initial complaints. he has presented to the ER a couple of times over the last few days where labs had been generally unremarkable and CT ab/pelvis/CXR's were notable for some mild atelectesis. patienet notes this AM he definitially had left sided dull chest pain on and off and this radiated to the left shoulder. when asked he notes he did have X1 episode of nausea which was followed by vomiting this AM. he initially notes a small amount of bright red blood in this but goes later on denies this. he was asked about hematemesis and he notes trace amount of blood in his sputum which he also recants later in the interview as he notes as that was weeks ago after a bronchitis and he hasn't had any of this sense. ROS negative for massive hemoptysis or hematemesis and this he was certain about. he was noted to be tachycardiac and newly hypertensive in the ER today and a d-dimer was obtained and it was high in the high-400's. an EKG was noted to be sinus tachycardia with incompletel RBBB as well as diffuse, non-specific T wave inversions. a cbc showed a stable mild anemia and otherwise otherwise unremarkable. troponin at that time was negative. cmp showed a mild elevated in non-fasting blood sugar and was otherwise normal. a CT scan of the chest with PE protocol was notable for bilateral pulmonary emboli and there was consideration of early pulmonary infarct. aside from mildly elevated bp and mild sinus tachycaria, vitals have been ok. oxygenation has been good on room air. patient was given 50mcg of IV fentanyl which has quelled his pain. he was also given 65mg of SQ lovenox as well. he was admitted to [facility] for further workup and evaluation. patient denies fevers, chills, body aches, fatigue, weakness. no ear pain, sinus pain, sore throat, runny nose, dizziness, syncope, near-syncope. no falls , trauma, injuries. no recent travels. no long periods of immobilization. no personal of history or family history of venous thromboembolism. no other DVT/ PE risk factors other than the smoking. no numbness/weakness/tinging anywhere. no cranial nerve symptoms/deficits or focal neurologic deficits. no skin changes or new rashes. no changes in baseline cognition, confusion, altered mentation, obtundation, depression symptoms, hallucinations, delusions, delerium symptoms. no chest pain currently. no shoulder pain currently. chest pain was dull. he was SOA earlier today but not now it seems. no palpitations, orthopnea, PND, new edema, leg asymmetry. no falls, trauma, injuries. no dysuria, hematuria, urinary frequency, flank pain, nocturia, urinary/bowel incontinance. no boggy/inflammed/swollen focal joints or muscle groups. no homicidal/suicidal ideations. no changes from previous otherwise. no new issues otherwise at this time. Review of Systems - Constitutional Constitutional: Present: as per HPI - EENMT Eyes: Present: as per HPI Ears: Present: as per HPI Balance: Present: as per HPI Nose: Present: as per HPI Mouth/Throat: Present: as per HPI - Cardiovascular Cardiovascular: Present: as per HPI - Respiratory Respiratory: Present: as per HPI - Gastrointestinal Gastrointestinal: Present: as per HPI - Genitourinary Genitourinary: Present: as per HPI - Musculoskeletal Musculoskeletal: Present: as per HPI - Integumentary/Breasts Integumentary: Present: as per HPI Breasts: as per HPI - Neurological Neurological: Present: as per HPI - Psychiatric Psychiatric: Present: as per HPI - Endocrine Endocrine: Present: as per HPI - Hematologic/Lymphatic Hematologic/Lymphatic: Present: as per HPI - Allergic/Immunologic Allergic/Immunologic: Present: as per HPI Past Medical History Medical History: Medical History (Last Updated 09/20/17 @ 14:51 by Liz Bragg APRN) Anxiety Tobacco abuse Medical History Updates: -bipolar/schizophrenia. on invega every 30 days. - COPD. -borderline cognitive dysfunction, congenital. -seasonal allergies. - constipation Surgical History: -tonsilectomy Family History: Family History (Last Updated 09/20/17 @ 15:06 by Liz Bragg, MIRI) Father Alcoholism Mother Alzheimer's dementia, late onset Family History Updates: -mother had alzhemiers and has . -father had alcoholism and has . -once sister has in MVA. -one brother has alcoholism Family History: As Above - Social History Smoking status: Current every day smoker Social history: lives at home by himself. has social work as support. -denies any alcohol use -denies illicit substance use -on disability -chronic longtime and active smoker. Medications Home Medications Medication Instructions Recorded Confirmed Type Paliperidone Sustenna [Invega 1 unit SQ Q30D 10/05/17 11/02/17 History Sustenna] Metoclopramide HCl [Reglan] 10 mg PO QID PRN #30 tab 10/29/17 11/02/17 Rx Albuterol HFA Inhaler [Ventolin 1 puff INH DAILY PRN 10/31/17 11/02/17 History Hfa 90 mcg/actuation] Baclofen [Lioresal] 10 g PO TID PRN 10/31/17 11/02/17 History Tamsulosin [Flomax] 0.4 mg PO HS 10/31/17 11/02/17 History Allergies Allergy/AdvReac Type Severity Reaction Status Date / Time No Known Drug Allergies Allergy Unknown Verified 11/02/17 15:30 Exam Vital Signs: Temperature 98.1 F 11/02/17 18:47 Pulse Rate 106 H 11/02/17 18:47 Respiratory Rate 20 11/02/17 18:47 Blood Pressure 168/84 H 11/02/17 18:47 Pulse Oximetry 97 11/02/17 18:47 Telemetry Rhythm: Sinus Tachycardia Height/Weight/BMI: Height 1.6 m Weight 60.3 kg Body Mass Index 23.5 - Constitutional Present: no acute distress, cooperative Comments: not discheveled. not obtunded, confused. no altered mentation, obtundation, confusion, changes in cognition from usual baseline. no photophobia or clinical evidence of meningitis/encephalopathy at this time. - Routine HEENT Exam Head: Present: normocephalic, atraumatic ENT: Present: mucous membranes moist - Routine Neck Exam Present: supple Comments: no JVD. no nuchal rigidity. no photophobia. see the above also. - Routine Chest/Breast/Axilla Exam Comments: no chest pain to palpation right now. mild tenderness just superior and posterior to ASIS on the left. no associated redness/weeping/drainage/ fluctuance/cellulitis/mass there. some spasm noted in musculature. no back pain. no clinical evidence of acute, chronic, new or worsening neurovascular compromise b/l in LE's at this time. - Routine Respiratory Exam Comments: lungs clear to auscultation bilaterally. no crackles, wheezes or rales. moving air well. lung sounds heard in all lung katz b/l at this time. no respiratory distress, retractions, accessory muscle use, stridor, airway compromise b/l at this time. - Routine Cardiovascular Exam Present: RRR (HR in upper 90's upon my exam at this time. ), no murmur Comments: no JVD. no LE edema b/l at this time. no new edema anywhere else. pulses normal in all 4 extremities b/l at this time. extremities warm and clinically well perfused in all 4 extremities b/l at this time. no boggy/inflammed/ swollen focal joints and muscle groups. legs symmetrical and compartments soft b/l in LE's at this time. - Routine Abdominal Exam Present: soft (X4.), normoactive bowel sounds (x4.), non distended (X4.), non tender (X4.) Comments: no rebound, guarding, rigidity. no organomegally. no jaundice, distension, ascites. no abnormal pulsations at all at this time. - Routine Exam Comments: no pain over bladder area. no clinical evidence of upper UTI at this time. no flank pain b/l at this time. - Routine Extremities Exam Comments: no pallor or cyanosis of extremities b/l X4. - Routine Back/Spine/Pelvis Exam Comments: see the above as well. - Routine Skin Exam Present: intact Comments: no skin changes from previous to uncovered areas. - Routine Neurological Exam Present: alert, oriented X3 no changes neurologically from usual baseline. affect and cognition unchanged from usual baseline. see the above at this time. - Routine Psychiatric Exam Present: normal affect (for patient.), normal thought process (for patient.), cooperative Comments: no clinical evidence of psychosis and juliette. see the above. no changes from patient's usual baseline in general. Results - Labs CBC & Chem 7: 11/02/17 15:57 11/02/17 15:57 Assessment and Plan Assessment and Plan: acute bilateral pulmonary emboli with surrounding mild noncardiogenic pulmonary edema hypertension and sinus tachycardia with diffuse T-wave inversions from the above. questionable hemoptysis versus hematemesis earlier today. chronic mild multifactorial anemia mild non-fasting elevation on blood sugar earlier today chronic tobaccoism COPD -admit to inpatient, routine vitals with call parameters, I's and O's, telemetry, regular diet, up as tolerated, continuous pulse oximetry. given patient's normal BUN it is actually unlikely that patient has had genuine significant hematemesis. the hemoptysis mentioned above appears remote as well. see below. the infiltrate noted around the emboli in lungs don't appear to be pneumonia clinically. he denies any history and demonstrates no physical exam findings that would be consistent with respiratory infection as cause of this. unless this changes then no antibiotics or workup for pneumonia/other causes of this indicated at this time. patient consulted extensively on smoking cessation. -follow troponins X2 more with call parameters. get PT/PTT, mg, phos, full UA, TSH. -get cbc and cmp and type and cross in the AM. -echocardiogram ordered. see the above for other testing and results from this stay. -starting lovenox at theraputic dose BID. start IV fentanyl prn pain. convert home albuterol inhaler to duonebs q6hrs prn. start nicotine patch. start protonix IV BID. -Dr. Jiménez of pulmonology consulted and spoken with and case reviewed. he does agree that he would come in for emergent bronchoscopy if needed. agrees there's no indication for cardiothoracic surgery in this case. discussed risks versus benefits of fully anticoagulating in light of questionable hematemesis/hemoptysis noted above. given the progression of the emboli and unlikely significant hemoptysis/ hemesis the benefits of lovenox outweights the risks. -right now bp is acceptable and HR improving but if bp gets high enough we would need to add a prn medication. -further management pending the above. constipation -restart home colace prn. all other chronic medical issues stable and no other changes to plan of care at this time ppx -theraputic SQ Lovenox as above will serve for DVT ppx. -PO diet and protonix noted in the above for GI ppx. -FULL CODE -dispo heavily dependent on the above. DVT Prophylaxis: Lovenox GI Prophylaxis: Protonix, other (PO diet above as well.) Resuscitation Status: Full Code - Time spent with patient Time with patient PN: 50 minutes - Physician Narrative Narrative: Date: 11/02/17 Time: 2017 Sepsis Assessment - Evaluation Severe Sepsis: none seen
[2017-11-02] MEDS: ENOXAPARIN 60 MG/0.6 ML INJECTION SQ SCH (20:50)
[2017-11-02] MEDS: TAMSULOSIN 0.4 MG CAPSULE PO SCH (20:50)
[2017-11-02] MEDS: PANTOPRAZOLE 40 MG INJECTION IVP SCH ×3 (21:06→23:05)
[2017-11-03] MEDS: FentaNYL 100 MCG/2 ML INJECTION IVP PRN ×2 (01:35→07:16)
[2017-11-03] MEDS: SALINE FLUSH 10ml SYRINGE IVF PRN ×2 (07:15→21:05)
--- NOTE | 2017-11-03 08:26 | CT Scan Report ---
Indication: elevated ddimer PROCEDURE: CT angio pulm emboli: Encounter: Initial Comparison: Chest x-ray from the same date Technique: Axial CT pulmonary angiographic phase images were performed through the chest after the administration of intravenous contrast. Coronal and Sagittal MIP reconstructed images were created and reviewed. Automated Exposure Control and Iterative Reconstruction dose reducing techniques were utilized. Contrast: Omnipaque 350 74 mL Findings: Pulmonary arteries: Exam is diagnostic to the subsegmental pulmonary arterial level. There are subsegmental pulmonary emboli seen in the right lower lobe. Segmental and subsegmental pulmonary emboli in the left lower lobe. There are also areas of apparently thrombosed pulmonary veins in the left lower lobe. There is airspace consolidation and groundglass opacities in the left lower lobe with a trace pleural effusion. Minimal atelectasis in the right costophrenic angle. The right lung is otherwise clear. No pneumothorax. The central airways are patent. No axillary or mediastinal lymphadenopathy. Heart size is normal. Small pericardial effusion. The upper abdomen shows a benign right adrenal adenoma but no acute findings. Impression: 1. Bilateral areas of pulmonary emboli in the lower lobe pulmonary arteries with evidence of thrombosis in the left lower lobe pulmonary veins. 2. Probable pulmonary hemorrhage and developing pulmonary infarcts in the left lower lobe. There is a preliminary report by [employer]. .
[2017-11-03] MEDS: NICOTINE 14 MG PATCH TD SCH (09:22)
[2017-11-03] MEDS: ENOXAPARIN 60 MG/0.6 ML INJECTION SQ SCH ×2 (09:22→21:05)
[2017-11-03] MEDS: PANTOPRAZOLE 40 MG INJECTION IVP SCH ×2 (09:23→21:05)
[2017-11-03 11:08] VITALS: BMI 24.4
[2017-11-03] MEDS: FentaNYL 250 MCG/5 ML INJECTION IVP PRN ×3 (11:33→21:06)
--- NOTE | 2017-11-03 11:52 | Pulmonology Consult Note ---
History of Present Illness Consult date: 11/03/17 Requesting physician: Basim Chapman Reason for consult: pulmonary embolism Chief complaint: PE History of present illness: This is a 52 year old gentleman who has been having severe intermittent back pain for 3 weeks. He states that he has been to the ED for this but has not had any relief. He has not really described any shortness of breath but has noted heart racing at times. Yesterday he started coughing up a small amount of blood and then once even threw up some blood. He came to [facility] and was diagnosed with PE. He had a CTA showin. Bilateral areas of pulmonary emboli in the lower lobe pulmonary arteries with evidence of thrombosis in the left lower lobe pulmonary veins. 2. Probable pulmonary hemorrhage and developing pulmonary infarcts in the left lower lobe. He has been started on Lovenox and is comfortable and on room air. He is hoping to go home. He is a smoker for over 30 years. No history of lung problems. The history from Dr Chapman reads: patient is a pleasant 52yo male known to our clinic. he has a long history of smoking and has chronic borderline cognitive function and the latter does limit the history considerably. he frequently changes his story and changes his answers to review of systems questions. best as we can tell he was in his usual state of health until a few days ago. he developed localized pain at that time just above the pelvis on the left side in abdominal/side area. it is possible he may have had some chest pain initially at that time but it's not for certain and this doesn't appear to have been a major aspect of the initial complaints. he has presented to the ER a couple of times over the last few days where labs had been generally unremarkable and CT ab/pelvis/CXR's were notable for some mild atelectesis. patienet notes this AM he definitially had left sided dull chest pain on and off and this radiated to the left shoulder. when asked he notes he did have X1 episode of nausea which was followed by vomiting this AM. he initially notes a small amount of bright red blood in this but goes later on denies this. he was asked about hematemesis and he notes trace amount of blood in his sputum which he also recants later in the interview as he notes as that was weeks ago after a bronchitis and he hasn't had any of this sense. ALLIE negative for massive hemoptysis or hematemesis and this he was certain about. he was noted to be tachycardiac and newly hypertensive in the ER today and a d-dimer was obtained and it was high in the high-400's. an EKG was noted to be sinus tachycardia with incompletel RBBB as well as diffuse, non-specific T wave inversions. a cbc showed a stable mild anemia and otherwise otherwise unremarkable. troponin at that time was negative. cmp showed a mild elevated in non-fasting blood sugar and was otherwise normal. a CT scan of the chest with PE protocol was notable for bilateral pulmonary emboli and there was consideration of early pulmonary infarct. aside from mildly elevated bp and mild sinus tachycaria, vitals have been ok. oxygenation has been good on room air. patient was given 50mcg of IV fentanyl which has quelled his pain. he was also given 65mg of SQ lovenox as well. he was admitted to [facility] for further workup and evaluation. Review of Systems - Constitutional Constitutional: Present: as per HPI. Absent: fever(s), night sweats, weight loss - EENT Eyes: Absent: change in vision - Cardiovascular Cardiovascular: Present: chest pain, palpitations - Respiratory Respiratory: Present: cough, hemoptysis - Gastrointestinal Gastrointestinal: Present: abdominal pain - Musculoskeletal Musculoskeletal: Absent: joint swelling - Endocrine Endocrine: Absent: polydipsia, polyphagia - Hematologic/Lymphatic Hematologic/Lymphatic: Absent: easy bleeding PFS Patient Stated Medical History Sleep Apnea No Gastroesophageal Reflux Yes Disease Hx Benign Prostatic Yes Hyperplasia Depression Yes Paranoid Disorder Yes Schizophrenia Yes Other Behavioral Health Yes: ADJUSTMENT DISORDER Clinic Medical History (Last Updated 09/20/17 @ 14:51 by Liz Bragg APRN) Anxiety (Acute Medical) Tobacco abuse (Acute Medical) Medical History Updates: -bipolar/schizophrenia. on invega every 30 days. - COPD. -borderline cognitive dysfunction, congenital. -seasonal allergies. - constipation Surgical History: -tonsilectomy Family History: Family History (Last Updated 09/20/17 @ 15:06 by Liz Bragg APRN) Father Alcoholism Mother Alzheimer's dementia, late onset Family History Updates: -mother had alzhemiers and has . -father had alcoholism and has . -once sister has in MVA. -one brother has alcoholism - Social History Smoking status: Current every day smoker Substance use type: former substance user Alcohol intake: former Does patient use chewing tobacco?: No Medications Home Medications Medication Instructions Recorded Confirmed Type Paliperidone Sustenna [Invega 1 unit SQ Q30D 10/05/17 11/02/17 History Sustenna] Metoclopramide HCl [Reglan] 10 mg PO QID PRN #30 tab 10/29/17 11/02/17 Rx Albuterol HFA Inhaler [Ventolin 1 puff INH DAILY PRN 10/31/17 11/02/17 History Hfa 90 mcg/actuation] Baclofen [Lioresal] 10 g PO TID PRN 10/31/17 11/02/17 History Tamsulosin [Flomax] 0.4 mg PO HS 10/31/17 11/02/17 History Allergies Allergy/AdvReac Type Severity Reaction Status Date / Time No Known Drug Allergies Allergy Unknown Verified 11/02/17 15:30 Exam Vital signs: Temperature 98.1 F 11/03/17 07:45 Pulse Rate 103 H 11/03/17 07:45 Respiratory Rate 16 11/03/17 07:45 Blood Pressure 133/84 11/03/17 07:45 Pulse Oximetry 94 11/03/17 08:40 - Constitutional no acute distress - Routine HEENT Exam Head: Present: normocephalic Eye: Present: EOMI, PERRL ENT: Present: mucous membranes moist - Routine Neck Exam Present: supple - Routine Chest/Breast/Axilla Exam Chest wall: Absent: tenderness, mass - Routine Respiratory Exam Present: decreased breath sounds, CTA bilaterally. Absent: accessory muscle use - Routine Cardiovascular Exam Present: RRR - Routine Abdominal Exam Present: soft. Absent: guarding - Routine Extremities Exam Absent: cyanosis, clubbing, edema - Routine Skin Exam Absent: rash - Routine Neurological Exam Present: alert, motor deficit Results - Laboratory Findings CBC and BMP: 11/03/17 04:34 11/03/17 04:34 PT/INR, D-dimer INR 1.18 (0.92-1.18) 11/02/17 20:55 D-Dimer 475 NG/ML (0-230) H 11/02/17 15:56 Abnormal lab findings: Abnormal Labs 11/03/17 11/03/17 11/03/17 02:36 04:34 04:34 RBC 3.75 L Hgb 12.2 L Hct 35.6 L Emmons % (Auto) 15.9 H Emmons # (Auto) 1.1 H Potassium 3.5 L BUN 8.0 L AST 12 L Total Protein 6.2 L Ur Specific Barnhart 1.010 L Urine Ketones Trace A - Diagnostic Findings CT scan - chest: report reviewed, image reviewed Assessment and Plan (1) Pulmonary embolism and infarction Status: Acute Assessment and plan: I agree with the findings on CT and this seems to fit with the clinic scenario. I agree with this use of Lovenox 1 mg/kg sq q12. I would recommend transitioning this to an oral anticoagulant. Given certain psychosocial issues , Xarelto may be the best choice for him from a compliance viewpoint. Current Visit: Yes (2) Abnormal CT scan, lung Status: Acute Assessment and plan: parenchymal densities LLL on CT chest most likely relate to pulmonary infarction , however close radiographic followup is needed. I would recommend a 2-[address] to ensure improvement and/or resolution Current Visit: Yes (3) Tobacco abuse disorder Status: Acute Assessment and plan: recommend smoking cessation counseling. I recommend PFT as the patient is at risk for COPD Current Visit: Yes - Time Spent With Patient Total time spent is greater than 50% in coordination of care (as documented) at patient's floor/unit and/or counseling patient: 25 - 35 minutes
--- NOTE | 2017-11-03 13:14 | Progress Note ---
- Date 11/03/17 Subjective: patient doing much better. when asked he still notes he occasionally coughs up trace amounts of bright red blood but when he shows me his tissue today there's just regular mucous on it and no blood. no massive hemoptysis. vital signs have been ok all night and no clinical evidence of gas exchange issues or pulmonary hemorrhage. otherwise feels well. no headaches, stroke symptoms, focal neurologic deficits, fevers, chills, body aches, fatigue, weakness, ear pain, sinus pain, sore throat, runny nose, dizziness, syncope, near-syncope, falls, trauma, injuries, ear pain, sinus pain, sore throat, runny nose, skin changes, new rashes, boggy/inflammed/painful/swollen focal joints or muscle groups. no chest pain since admission. no SOA at rest or exertion. no new cough he says. no palpitations. no abdominal pain, GERD symptoms, nausea, vomiting, diarrhea, constipation, blood/black stools, hematemesis, coffee ground emesis, melena, BRBPR. no dysuria, hematuria, urinary frequency, flank pain, nocturia, urinary/bowel incontinance, urinary retention, polyuria, oliguria, other urinary symptoms/changes, mood changes, depression symptoms, manic symptoms, psychotic symptoms, confusion, altered mentation, obtundation. no events called on telemetry. no acute issues overnight. pain well controlled and vitals stable since admission. eating/drinking ok per report. no BM since admission but he's only been here overnight. no new issues otherwise at this time. Objective Vital signs: Temperature 98.1 F 11/03/17 07:45 Pulse Rate 103 H 11/03/17 07:45 Respiratory Rate 16 11/03/17 07:45 Blood Pressure 133/84 11/03/17 07:45 Pulse Oximetry 94 11/03/17 08:40 Rhythm: Normal Sinus Rhythm Height/Weight/BMI: Height 1.6 m Weight 62.6 kg Body Mass Index 24.4 - Constitutional Present: no acute distress, cooperative. Absent: cachectic, diaphoretic, disheveled, combative, agitated, somnolent, obtunded - Routine HEENT Exam Head: Present: normocephalic, atraumatic ENT: Present: mucous membranes moist Comments: no changes. - Routine Respiratory Exam Present: CTA bilaterally. Absent: accessory muscle use, patient mechanically ventilated, dyspnea, decreased breath sounds, prolonged expiratory phase, rales , respiratory distress, rhonchi, stridor, wheezes, crackles, distant breath sounds, diminished air movement Comments: lung sounds heard in all lung katz b/l at this time. all findings above bilateral unless otherwise noted. - Routine Cardiovascular Exam Present: RRR Comments: no new murmurs. no LE edema b/l at this time. no boggy/inflammed/swollen focal joints or muscle groups. no pallor or cyanosis of extremities. legs symmetrical and compartments soft b/l in LE's at this time. clinically well perfused in all 4 extremities b/l at this time. - Routine Abdominal Exam Present: soft (X4.), normoactive bowel sounds (X4.), non distended (x4.), non tender (X4.). Absent: tenderness (X4.), distended (X4.), rebound, guarding, firm, rigid, organomegaly, mass Comments: no ascites, jaundice, or distension. - Routine Exam Comments: no tenderness over bladder area. no clinical evidence of upper UTI at this time. - Routine Extremities Exam Absent: cyanosis, pallor, extremity cold to touch Comments: see above. - Routine Back/Spine/Pelvis Exam Comments: see above. - Routine Musculoskeletal Exam Musculoskeletal: Present: no tenderness, no erythema, moving extremities well. Absent: joint erythera, joint swelling - Routine Skin Exam Present: intact Comments: no skin changes from previous to uncovered areas. - Routine Neurological Exam Present: alert, oriented X3 affect and cognition at patient's usual baseline. no changes neurologically from previous baseline. no clinical evidence of juliette, depression, anxiety, altered mentation, obtundation, confusion, encephalopathy, meningitis, photophobia, psychosis, delerium at this time. denies homicidal/suicidal ideations. - Routine Lymphatic Exam Lymphatic: Absent: lymphedema - Routine Psychiatric Exam Present: normal affect, cooperative. Absent: suicidal ideation, homicidal ideation, auditory hallucinations, visual hallucinations, tactile hallucinations , depressed, anxious, agitated, paranoid, manic Comments: no changes from usual baseline. Results - Labs CBC & Chem 7: 11/03/17 04:34 11/03/17 04:34 Assessment and Plan Assessment and Plan: acute bilateral pulmonary emboli with surrounding mild noncardiogenic pulmonary edema, improving. hypertension and sinus tachycardia with diffuse T-wave inversions from the above. questionable hemoptysis versus hematemesis secondary to the above. chronic mild multifactorial anemia mild non-fasting elevation on blood sugar on admission chronic tobaccoism COPD -continue inpatient, routine vitals with call parameters, I's and O's, telemetry, regular diet, up as tolerated, continuous pulse oximetry. continue to monitor for bleeding. -troponins all unremarkable X3. coags, mg, phos, TSH, UA, cbc's, cmp's all unremarkable and otherwise stable from previous. patient typed and screened. see previous notes for other testing and results from this stay. -echocardiogram pending. -cbc, cmp, EKG in the AM. -continue lovenox at theraputic dose BID, IV fentanyl prn pain, duonebs prn , nicotine patch, protonix IV BID. -Dr. Jiménez of pulmonology consulted. agrees with current management. recommends PFT's as outpatient. recommends conversion to xarelto upon discharge. -further management pending the above. constipation -continue home colace prn. all other chronic medical issues stable and no other changes to plan of care at this time ppx -theraputic SQ Lovenox as above will serve for DVT ppx. -PO diet and protonix noted in the above for GI ppx. -FULL CODE -dispo hopefully discharge home tomorrow. DVT Prophylaxis: Lovenox GI Prophylaxis: Protonix, other (PO diet.) Resuscitation Status: Full Code - Time spent with patient Time with patient PN: 25 minutes Sepsis Assessment - Evaluation Severe Sepsis: none seen
[2017-11-03] MEDS: DOCUSATE SODIUM 100 MG CAPSULE PO PRN (16:13)
[2017-11-03] MEDS: TAMSULOSIN 0.4 MG CAPSULE PO SCH (21:05)
[2017-11-04] MEDS: DOCUSATE SODIUM 100 MG CAPSULE PO PRN (06:21)
[2017-11-04] MEDS: FentaNYL 250 MCG/5 ML INJECTION IVP PRN ×4 (06:22→21:13)
[2017-11-04] MEDS: SALINE FLUSH 10ml SYRINGE IVF PRN ×3 (06:22→18:43)
[2017-11-04] MEDS: NICOTINE 14 MG PATCH TD SCH ×2 (09:00→09:37)
--- NOTE | 2017-11-04 09:06 | Pulmonology Progress Note ---
Subjective Interval history: Pt in chair, states breathing doing ok, no SOB, + cough with small amounts of blood noted. Exam Vital signs: Temperature 97.5 F 11/04/17 07:00 Pulse Rate 109 H 11/04/17 07:00 Respiratory Rate 16 11/04/17 07:00 Blood Pressure 136/89 11/04/17 07:00 Pulse Oximetry 93 11/04/17 07:05 Inpatient Medications: Generic Name Dose Route Start Last Admin Trade Name Frerian PRN Reason Stop Dose Admin Albuterol/Ipratropium 3 ml 11/02/17 19:35 Duoneb AEROSOL RTQID PRN Shortness of air/wheezing Docusate Sodium 100 mg 11/02/17 21:33 11/04/17 06:21 Colace PO 100 mg BID PRN Administration Constipation /Stool softening Enoxaparin Sodium 60 mg 11/02/17 21:00 11/03/17 21:05 Lovenox SQ 60 mg BID KRYSTYNA Administration Fentanyl 25 mcg 11/03/17 11:30 11/04/17 06:22 Sublimaze IVP 25 mcg Q1HR PRN Administration Pain Magnesium Hydroxide 30 ml 11/04/17 06:20 11/04/17 06:21 Mom PO 30 ml DAILY PRN Administration Constipation Nicotine 14 mg 11/03/17 09:00 11/03/17 09:22 Nicoderm TD 14 mg DAILY KRYSTYNA Administration Pantoprazole Sodium 40 mg 11/02/17 19:45 11/03/17 21:05 Protonix Iv IVP 40 mg BID KRYSTYNA Administration Sodium Chloride 10 - 80 ml 11/02/17 17:01 11/04/17 06:22 Iv Flush IVF 10 ml PRN PRN Administration Flushing Tamsulosin HCl 0.4 mg 11/02/17 21:00 11/03/17 21:05 Flomax PO 0.4 mg HS KRYSTYNA Administration Discontinued Medications Generic Name Dose Route Start Last Admin Trade Name Freq PRN Reason Stop Dose Admin Enoxaparin Sodium 65 mg 11/02/17 18:18 11/02/17 18:21 Lovenox SQ 11/02/17 18:19 65 mg O ONE Administration Fentanyl 50 mcg 11/02/17 18:23 11/02/17 18:26 Fentanyl IVP 11/02/17 18:24 50 mcg O ONE Administration Fentanyl 25 mcg 11/02/17 19:26 11/03/17 07:16 Fentanyl IVP 25 mcg Q1HR PRN Administration Pain Ketorolac Tromethamine 60 mg 11/02/17 15:47 11/02/17 15:53 Toradol Inj IM 11/02/17 15:48 60 mg O ONE Administration - Constitutional no acute distress, average body habitus, cooperative - Routine HEENT Exam Head: Present: normocephalic, atraumatic Eye: Present: EOMI, PERRL ENT: Present: mucous membranes moist - Routine Neck Exam Present: supple, full ROM, trachea midline - Routine Respiratory Exam Present: decreased breath sounds. Absent: accessory muscle use, patient mechanically ventilated - Routine Cardiovascular Exam Present: RRR, S1, S2, no murmur - Routine Abdominal Exam Present: soft, normoactive bowel sounds - Routine Extremities Exam Present: no edema, non tender, full ROM. Absent: cyanosis, clubbing, edema - Routine Back/Spine/Pelvis Exam Back/Spine: Present: full ROM - Routine Skin Exam Present: intact, dry - Routine Neurological Exam Present: alert, oriented X3, CN II-XII intact, moving all extremities - Routine Psychiatric Exam Present: normal affect, normal thought process Results - Laboratory Findings Laboratory: Laboratory Results - last 48 hr 11/02/17 11/02/17 11/03/17 20:55 20:55 02:36 WBC RBC Hgb Hct MCV MCH MCHC RDW Std Deviation Plt Count MPV Immature Gran % (Auto) Neut % (Auto) Lymph % (Auto) [place] % (Auto) Eos % (Auto) Baso % (Auto) Neut # (Auto) Lymph # (Auto) [place] # (Auto) Eos # (Auto) Baso # (Auto) Abs Immat Gran (auto) INR 1.18 APTT 32.5 Turbidity Sodium Potassium Chloride Carbon Dioxide Anion Gap BUN Creatinine GFR Calculation BUN/Creatinine Ratio Glucose Calculated Osmolality Calcium Phosphorus 3.8 Magnesium 2.1 Total Bilirubin Icterus Index AST ALT Alkaline Phosphatase Troponin I < 0.012 Total Protein Albumin Globulin Albumin/Globulin Ratio TSH 1.16 Specimen Hemolysis < 15 Ur Collection Type Urine, void-cc/notcc Urine Color Yellow Urine Clarity Clear Urine pH 5.5 Ur Specific [place] 1.010 L Urine Protein Negative Urine Glucose (UA) Negative Urine Ketones Trace A Urine Occult Blood Negative Urine Nitrate Negative Urine Bilirubin Negative Urine Urobilinogen 0.2 Ur Leukocyte Esterase Negative Urine RBC None seen Urine WBC None seen Urine Bacteria None seen Ur Culture Indicated? Cult not indicated Blood Type Antibody Screen 11/03/17 11/03/17 11/03/17 04:34 04:34 04:34 WBC 6.8 RBC 3.75 L Hgb 12.2 L Hct 35.6 L MCV 94.9 MCH 32.5 MCHC 34.3 RDW Std Deviation 43.1 Plt Count 256 MPV 10.1 Immature Gran % (Auto) 0.3 Neut % (Auto) 48.2 Lymph % (Auto) 31.3 [place] % (Auto) 15.9 H Eos % (Auto) 3.7 Baso % (Auto) 0.6 Neut # (Auto) 3.3 Lymph # (Auto) 2.1 [place] # (Auto) 1.1 H Eos # (Auto) 0.3 Baso # (Auto) 0.0 Abs Immat Gran (auto) 0.02 INR APTT Turbidity < 20 Sodium 142 Potassium 3.5 L Chloride 105 Carbon Dioxide 26 Anion Gap 11 BUN 8.0 L Creatinine 0.8 GFR Calculation 101 BUN/Creatinine Ratio 10 Glucose 102 Calculated Osmolality 271 Calcium 8.9 Phosphorus Magnesium Total Bilirubin 0.40 Icterus Index < 2 AST 12 L ALT 9 Alkaline Phosphatase 52 Troponin I < 0.012 Total Protein 6.2 L Albumin 3.5 Globulin 2.7 Albumin/Globulin Ratio 1.3 TSH Specimen Hemolysis < 15 Ur Collection Type Urine Color Urine Clarity Urine pH Ur Specific Ellinger Urine Protein Urine Glucose (UA) Urine Ketones Urine Occult Blood Urine Nitrate Urine Bilirubin Urine Urobilinogen Ur Leukocyte Esterase Urine RBC Urine WBC Urine Bacteria Ur Culture Indicated? Blood Type A Negative Antibody Screen Negative 11/04/17 11/04/17 04:11 04:11 WBC 6.5 RBC 4.06 L Hgb 13.2 L Hct 38.4 L MCV 94.6 MCH 32.5 MCHC 34.4 RDW Std Deviation 43.0 Plt Count 283 MPV 10.4 Immature Gran % (Auto) 0.3 Neut % (Auto) 41.3 Lymph % (Auto) 39.7 [place] % (Auto) 14.5 H Eos % (Auto) 3.7 Baso % (Auto) 0.5 Neut # (Auto) 2.7 Lymph # (Auto) 2.6 [place] # (Auto) 1.0 H Eos # (Auto) 0.2 Baso # (Auto) 0.0 Abs Immat Gran (auto) 0.02 INR APTT Turbidity < 20 Sodium 144 Potassium 3.9 Chloride 106 Carbon Dioxide 26 Anion Gap 12 BUN 8.0 L Creatinine 0.9 GFR Calculation 88 BUN/Creatinine Ratio 9 Glucose 89 Calculated Osmolality 274 Calcium 9.3 Phosphorus Magnesium Total Bilirubin 0.50 Icterus Index < 2 AST 12 L ALT 9 Alkaline Phosphatase 57 Troponin I Total Protein 6.6 Albumin 3.7 Globulin 2.9 Albumin/Globulin Ratio 1.3 TSH Specimen Hemolysis < 15 Ur Collection Type Urine Color Urine Clarity Urine pH Ur Specific [place] Urine Protein Urine Glucose (UA) Urine Ketones Urine Occult Blood Urine Nitrate Urine Bilirubin Urine Urobilinogen Ur Leukocyte Esterase Urine RBC Urine WBC Urine Bacteria Ur Culture Indicated? Blood Type Antibody Screen Assessment and Plan - Assessment and Plan Pulmonary Embolism w/infarct Abnormal CT chest Likely COPD Plan: Pt currently on RA without SOB noted. On sq lovenox 1mcg/kg for PE, will need oral anticoagulant and likely would benefit from xarelto for better adherence. CT showed parenchymal densities LLL that likely relate to the pulmonary infarction, would recommend a 2-[address] to ensure improvement and/ or resolution. Also recommend OP PFT to assess severity of COPD. PRN a/a ordered QID, hasn't required, cont to follow. - Time Spent With Patient Total time spent is greater than 50% in coordination of care (as documented) at patient's floor/unit and/or counseling patient: less than 15 minutes
[2017-11-04] MEDS: PANTOPRAZOLE 40 MG INJECTION IVP SCH (09:38)
[2017-11-04] MEDS: ENOXAPARIN 60 MG/0.6 ML INJECTION SQ SCH ×2 (09:38→21:14)
[2017-11-04] MEDS: ACETAMINOPHEN 325 MG TABLET PO PRN (10:17)
--- NOTE | 2017-11-04 11:16 | Echocardiogram ---
DATE OF PROCEDURE November 03, [address] Basim Chapman This is a two-dimensional echo with spectral Doppler, color-flow and M-mode. It was obtained in a patient with pulmonary embolus. Left atrial dimension is normal. Left ventricular end-diastolic dimension is normal. Left ventricle wall thickness is normal. LV systolic function is normal with ejection fraction of 55%. Right atrium is normal. Right ventricle is normal. Aortic root dimension is normal. Mitral valve is morphologically normal with no stenosis or insufficiency. Aortic valve appears to be normal. Tricuspid valve shows trace of tricuspid regurgitation with normal estimated pulmonary artery systolic pressure of 19. Pulmonary valve shows trace of pulmonary insufficiency. There is no pericardial effusion. IMPRESSION 1. Normal LV systolic function with ejection fraction of about 55%. 2. Trace of tricuspid regurgitation with normal estimated pulmonary artery systolic pressure of 19. 3. Trace of pulmonary insufficiency. MTDD
[2017-11-04] MEDS: NICOTINE PATCH REMOVAL TD SCH (16:23)
--- NOTE | 2017-11-04 17:10 | Progress Note ---
- Date 11/04/17 Subjective: patient doing well overall. he's a bit apprehensive about going home. no acute issues. he still states he coughs up trace amounts of blood at time but improved from admission although this is still questionable. denies chest pain , SOA, orthopnea, PND, new edema, leg asymmetry, changes in exertional tolerance , palpitations, ear pain, sinus pain, sore throat, runny nose, fatigue, weakness , dizziness, syncope, near-syncope, falls, trauma, injuries, appetite changes, night sweats, constitutional symptoms, skin changes, new rashes. no events called on telemetry and no acute issues noted overnight. he notes X1 normal bowel movement since we last spoke. no numbness/weakness/tingling anywhere. no vision changes, cranial nerve symptoms/deficits, no other sputum production. denies new or changing cough. no feves, chills, body aches, fatigue, weakness. doesn't feel systemically unwell. no abdominal pain, GERD symptoms, nausea, vomiting, diarrhea, constipation, bloody/black stools, hematemesis, coffee ground emesis, melena, BRBPR, dysphagia, GI warning symptoms. no boggy/ tender/swollen/inflammed/painful focal joints or muscle groups. no seizure symptoms, dysuria, hematuria, oliguria, polyuria. no new or changing urinary frequency or nocturia. no mood changes, depression symptoms, behavior issues, hallucinations, delusions, manic symptoms, homicidal/suicidal ideations. no event called on telemetry as noted. only requires pain med occasionally for the aformentioned left lower side abdominal pain noted in previous encounters. this hasn't changed otherwise in location or associated symptoms and I'll refer you to previous notes for other details on this as it hasn't changed. hasn't had any left side pain today. the chest pain from admission hasn't returned. no new issues otherwise at this time. Objective Vital signs: Temperature 97.6 F 11/04/17 16:01 Pulse Rate 90 11/04/17 16:01 Respiratory Rate 16 11/04/17 16:01 Blood Pressure 133/90 H 11/04/17 16:01 Pulse Oximetry 96 11/04/17 16:01 Rhythm: Normal Sinus Rhythm Height/Weight/BMI: Height 1.6 m Weight 61.3 kg Body Mass Index 24.4 - Constitutional Present: no acute distress Comments: no clinical evidence of juliette, depression, anxiety, altered mentation, obtundation, confusion, behavior issues, personality changes, delerium, psychosis, encephalopathy, photophobia, meningitis at this time. affect and cognition unchanged from usual baseline. - Routine HEENT Exam Head: Present: normocephalic, atraumatic ENT: Present: mucous membranes moist Comments: no changes. - Routine Respiratory Exam Present: CTA bilaterally Comments: LCTAB. no crackles, wheezes, rales. moving air well. lung sounds heard in all lung katz b/l at this time. no respiratory distress, retractions, accessorey muscle use, stridor, airway compromise b/l at this time. - Routine Cardiovascular Exam Present: RRR Comments: no new murmurs. clinically well perfused in all 4 extremities b/l at this time. no new edema. legs symmetrical and compartments soft b/l in LE"s at this time. no boggy/inflammed/swollen focal joints or muscle groups. pulses unchanged in extremities b/l X4. - Routine Abdominal Exam Present: soft (X4.), normoactive bowel sounds (X4.), non distended (X4.), non tender (X4.) Comments: no guarding, rebound, rigidity, organomegally, masses. no ascites, jaundice, distension. - Routine Extremities Exam Comments: see above as well. - Routine Back/Spine/Pelvis Exam Comments: no flank or back pain b/l at this time. no clinical evidence of upper or lower UTI at this time. - Routine Musculoskeletal Exam Musculoskeletal: Present: normal strength, no joint swelling, no erythema, moving extremities well - Routine Skin Exam Present: intact Comments: no issues from previous to uncovered areas. - Routine Neurological Exam Present: alert, oriented X3 no changes neurologically from previous baseline. affect and cognition unchanged from usual baseline. see the above also. - Routine Psychiatric Exam Present: normal affect, normal thought process (for patient. at his usual baseline. ) Comments: see the above as well. Results - Labs CBC & Chem 7: 11/04/17 04:11 11/04/17 04:11 Assessment and Plan Assessment and Plan: acute bilateral pulmonary emboli with surrounding mild noncardiogenic pulmonary edema, improving. hypertension and sinus tachycardia with diffuse T-wave inversions from the above. questionable hemoptysis versus hematemesis secondary to the above. chronic mild multifactorial anemia mild non-fasting elevation on blood sugar on admission chronic tobaccoism COPD -continue inpatient, routine vitals with call parameters, I's and O's, telemetry, regular diet, up as tolerated, continuous pulse oximetry. continue to monitor for bleeding. will ambulate TID with assist. -echocardiogram unremarkable from admission. cbc's stable in general as compared to previous. cmp's unchanged from patient's usual baseline. EKG with resolved tachycardia but persistent RBBB and T wave inversions in right precordial leads. patient without chest pain and troponins all were negative. cadiology evaluatio as outpatient a consideration. no acute issues with EKG today. see previous notes for other testing and results from this stay. -cbc, cmp in the AM. -continue lovenox at theraputic dose BID, IV fentanyl prn pain, duonebs prn , nicotine patch. continue mild of magnesia prn and colace prn for constipation as well. continue current tylenol prn for pain as well. convert IV protonix to 40mg PO BID protonix. -Dr. Jiménez of pulmonology consulted. agrees with current management. transition to xarelto upon discharge or over the weekend. recheck CT chest in 2 months. get PFT 's as outpatient otherwise continue as is ordered. -further management pending the above. constipation -continue home colace prn. continue current mild of magnesia as noted above. all other chronic medical issues stable and no other changes to plan of care at this time ppx -theraputic SQ Lovenox as above will serve for DVT ppx. -PO diet and protonix noted in the above for GI ppx. -FULL CODE -dispo home health consult ordered. hard to say whether home health or Navjot Springer (social media sr strategy manager who follows patient at [facility]) could help him access and take medications over the weekend. patient's baseline cognitive function is such where he likely couldn't coordinate any of this himself. discharging him now would put him at high risk for treatment failure because of this. will keep him over weekend and likely discharge home tuesday next week when more support services available. DVT Prophylaxis: Lovenox (see the above. ) GI Prophylaxis: Protonix, other (see the above. ) Resuscitation Status: Full Code - Time spent with patient Time with patient PN: 25 minutes - Physician Narrative Narrative: Date: 11/04/17 Time: 1701 Sepsis Assessment - Evaluation Severe Sepsis: none seen
[2017-11-04] MEDS: TAMSULOSIN 0.4 MG CAPSULE PO SCH (21:15)
[2017-11-05] MEDS: PANTOPRAZOLE 40 MG TABLET PO SCH ×2 (06:20→20:07)
[2017-11-05] MEDS: ENOXAPARIN 60 MG/0.6 ML INJECTION SQ SCH (10:14)
[2017-11-05] MEDS: ACETAMINOPHEN 325 MG TABLET PO PRN ×2 (10:14→20:19)
[2017-11-05] MEDS: NICOTINE 14 MG PATCH TD SCH (10:25)
[2017-11-05] MEDS: NICOTINE PATCH REMOVAL TD SCH (10:28)
--- NOTE | 2017-11-05 12:11 | Progress Note ---
- Date 11/05/17 Subjective: patient doing well. no issues. when asked he notes he's still coughing up small traces amount of bright red blood but this improves by the day. no headaches, stroke symptoms, syncope, dizziness, falls, injuries, trauma, ear pain, sinus pain, sore throat, runny nose. no vision changes, cranial nerve symptoms/deficits, focal neurologic deficits, skin changes, new rashes, chest pain, SOA, orthopnea, PND, new edema, changes in exertional tolerance. no new or changing cough. no fevers, chills, body aches, fatigue, weakness, photophobia, meningeal symptoms, altered mentation, obtundation, confusion, depressoin symptoms, manic symptoms, psychotic symptoms, changes in cognition. no numbness/weakness/tingling anywhere. no boggy/inflammed/swollen/painful focal joints or muscle groups. no near-syncope, abdominal pain, GERD symptoms, hematemesis, coffee ground emesis, melena, BRBPR, constipation, diarrhea, bloody /black stools. eating/drinking ok. when asked patient notes that the pain in his left lower abdominal side from admission has resolved. had X1 normal bowel movement per patient since our last conversation. no dysuria, hematuria, urinary frequency, flank pain, nocturia, urinary/bowel incontinance, other urinary symptoms/changes. no events called on telemetry. no acute issues overnight called. no new issues otherwise at this time. Objective Vital signs: Temperature 97.9 F 11/05/17 07:50 Pulse Rate 98 11/05/17 08:00 Respiratory Rate 20 11/05/17 07:50 Blood Pressure 172/98 H 11/05/17 07:50 Pulse Oximetry 96 11/05/17 07:50 Rhythm: Normal Sinus Rhythm Height/Weight/BMI: Height 1.6 m Weight 61.2 kg Body Mass Index 24.4 - Constitutional Present: no acute distress, cooperative. Absent: diaphoretic, disheveled, combative, agitated, somnolent, obtunded Comments: affect and cognition at patient's usual baseline. no clinical evidence of anxiety, juliette, depression, altered mentation, obtundation, confusion, changes in cognition, behavioral issues, personality changes, psychosis, delerium, photophobia, meningitis, encephalopathy at this time. - Routine HEENT Exam Head: Present: normocephalic, atraumatic Eye: Absent: periorbital swelling, exophthalmos ENT: Present: mucous membranes moist - Routine Respiratory Exam Present: CTA bilaterally. Absent: accessory muscle use, patient mechanically ventilated, dyspnea, decreased breath sounds, prolonged expiratory phase, rales , respiratory distress, rhonchi, stridor, wheezes, crackles, distant breath sounds, diminished air movement Comments: lung sounds heard in all lung katz b/l at this time. all findings above bilateral unless otherwise noted. - Routine Cardiovascular Exam Present: RRR Comments: no new murmur. no new edema. legs symmetrical and compartments soft b/l in LE' s at this time. clinically well perfused in all 4 extremities b/l at this time. no boggy/inflammed/swollen/painful focal joints or muscle groups. no pallor or cyanosis of extremities. - Routine Abdominal Exam Present: soft (X4.), normoactive bowel sounds (x4.), non distended (x4.), non tender (X4.). Absent: tenderness (X4.), distended (X4.), rebound, guarding, firm, rigid, organomegaly, mass Comments: no ascites, jaundice, distension. - Routine Exam Comments: no clinical evidence of upper or lower UTI at this time. no back pain. - Routine Extremities Exam Absent: cyanosis, joint swelling, pallor, extremity cold to touch Comments: see the above. - Routine Back/Spine/Pelvis Exam Comments: see above. - Routine Musculoskeletal Exam Musculoskeletal: Present: no joint swelling, no tenderness, no erythema, moving extremities well. Absent: joint erythera, joint swelling - Routine Skin Exam Present: intact Comments: no skin changes from previous to uncovered areas. - Routine Neurological Exam Present: alert, oriented X3 no changes neurologically from previous baseline. non focal. - Routine Lymphatic Exam Lymphatic: Absent: lymphedema - Routine Psychiatric Exam Present: normal affect (for patient.), normal thought process (for patient's usual baseline. ), cooperative. Absent: suicidal ideation, homicidal ideation , auditory hallucinations, visual hallucinations, tactile hallucinations, depressed, anxious, agitated, paranoid, manic Comments: see above as well. Results - Labs CBC & Chem 7: 11/05/17 04:16 11/05/17 04:16 Assessment and Plan Assessment and Plan: acute bilateral pulmonary emboli with surrounding mild noncardiogenic pulmonary edema, improving. hypertension and sinus tachycardia with diffuse T-wave inversions from the above. questionable hemoptysis versus hematemesis secondary to the above. chronic mild multifactorial anemia mild non-fasting elevation on blood sugar on admission chronic tobaccoism COPD borderline cognitive function -continue inpatient, routine vitals with call parameters, I's and O's, telemetry, regular diet, up as tolerated, continuous pulse oximetry. continue to monitor for bleeding. will ambulate TID with assist. home health consulted as outpatient. -cbc's stable in general as compared to as are cmp's. cadiology evaluatio as outpatient a consideration. see previous notes for other testing and results from this stay. -cbc, cmp in the AM. -d/c lovenox and convert to PO xarelto today. IV fentanyl prn pain, duonebs prn, nicotine patch, milk of magnesia prn, colace prn, tylenol prn, PO BID protonix. -Dr. Jiménez of pulmonology consulted. agrees with current management. transition to xarelto as above. recheck CT chest in 2 months. get PFT's as outpatient. otherwise continue as is ordered. -further management pending the above. constipation -continue home colace prn and milk of magnesia prn. all other chronic medical issues stable and no other changes to plan of care at this time ppx -theraputic SQ Lovenox as above will serve for DVT ppx. -PO diet and protonix noted in the above for GI ppx. -FULL CODE -dispo will be here over the weekend. see yesterday's note for explaination of this. DVT Prophylaxis: Lovenox, other (ambulate TID.) GI Prophylaxis: Protonix, other (PO diet as above. ) Resuscitation Status: Full Code - Time spent with patient Time with patient PN: 25 minutes Sepsis Assessment - Evaluation Severe Sepsis: none seen
[2017-11-05] MEDS: TAMSULOSIN 0.4 MG CAPSULE PO SCH (20:06)
[2017-11-05] MEDS: RIVAROXABAN 20 MG TABLET PO SCH (20:07)
[2017-11-05] MEDS: FentaNYL 250 MCG/5 ML INJECTION IVP PRN (21:10)
[2017-11-06] MEDS: PANTOPRAZOLE 40 MG TABLET PO SCH ×2 (06:34→16:21)
[2017-11-06] MEDS: NICOTINE 14 MG PATCH TD SCH (08:54)
[2017-11-06] MEDS: NICOTINE PATCH REMOVAL TD SCH (08:55)
[2017-11-06] MEDS ORDERED: METOPROLOL 5mg/5ml INJECTION IVP ONE (13:14)
[2017-11-06] MEDS: FentaNYL 250 MCG/5 ML INJECTION IVP PRN (14:11)
[2017-11-06] MEDS ORDERED: LABETALOL 20mg/4ml INJECTION IVP PRN (14:12)
--- NOTE | 2017-11-06 14:17 | Progress Note ---
- Date 11/06/17 Subjective: patient was doing well until just about one hour ago per report. at that time he was ambulating back to his bed. he became lightheaded and called his aid. his SBP's were also in 170's and his HR was in the 130's to 140's. she in turn notified Kait who called me. testing ordered as noted below. was seen by Dr. Guzman who noted an encouraging exam and has given 2.5mg IV metoprolol which has helped bring down his bp and HR. patient admittedly nervous. at the time of my exam patient's lightheadedness and tachycardia have resolved. bp coming down. patient denies headaches, facial numbness/weakness/tingling anywhere. no dysphagia, aspiration or cranial nerve symptoms/deficits. no numbness/ weakness/tingling anywhere else. no focal neurologic deficits or stroke symptoms. dizziness lasted several minutes. this was not vertigo and was pure lightheadedness. never had any depressed mentation or altered mentation. no falls, trauma, injuries as noted. no head trauma. no mood changes, depression symptoms, anxiety, altered mentation, obtundation, confusion, changes in cognition from usual baseline. no hallucinations, delusions, impulsive behavior , behavior issues, changes in personality. no homicidal/suicidal ideations. no skin changes or new rashes. no photophobia, meningeal symptoms, encephalopathic symptoms. dizziness has completely resolved upon my exam. no vision changes or vision loss. patient denies chest pain, SOA, orthopnea, PND, new edema, leg asymmetry, palpitations, cough, sputum production. no hemoptysis today at all. no abdominal pain, GERD symptoms, nausea, vomiting, diarrhea, constipation, bloody/black stools, ear pain, sinus pain, sore throat, runny nose, dysuria, hematuria, neck rigidity, flank pain, left lower side pain (like the pain he had when he came in). no polyuria, oliguria, other urinary symptoms/changes. no syncope or near-syncope. no boggy/inflammed/painful/ swollen focal joints or muscle groups. no musculoskeletal issues. no events called on telemetry other than noted above. no acute issues since last visit other than noted above. no new issues otherwise at this time. Objective Vital signs: Temperature 98.0 F 11/06/17 08:00 Pulse Rate 74 11/06/17 08:00 Respiratory Rate 16 11/06/17 08:00 Blood Pressure 129/84 11/06/17 08:00 Pulse Oximetry 97 11/06/17 08:55 Rhythm: Normal Sinus Rhythm Height/Weight/BMI: Height 1.6 m Weight 63.1 kg Body Mass Index 24.4 - Constitutional Present: no acute distress, cooperative. Absent: diaphoretic, disheveled, combative, agitated, somnolent, obtunded Comments: no changes from previous. - Routine HEENT Exam Head: Present: normocephalic, atraumatic Eye: Present: EOMI, PERRL, normal accommodation. Absent: periorbital ecchymosis , periorbital swelling, periorbital tenderness, exophthalmos, proptosis ENT: Present: mucous membranes moist - Routine Respiratory Exam Present: CTA bilaterally. Absent: accessory muscle use, patient mechanically ventilated, dyspnea, decreased breath sounds, prolonged expiratory phase, rales , respiratory distress, rhonchi, stridor, wheezes, crackles, distant breath sounds, diminished air movement Comments: lung sounds heard in all lung katz b/l at this time. all findings above bilateral unless otherwise noted. - Routine Cardiovascular Exam Present: RRR Comments: no new murmurs. no new edema. legs symmetrical and compartments soft b/l in LE 's at this time. clinically well perfused in all 4 extremities b/l at this time. no boggy/inflammed/swollen/painful focal joints or muscle groups. pulses normal in all 4 extremities b/l at this time. no pallor or cyanosis of extremities. - Routine Abdominal Exam Present: soft (x4.), normoactive bowel sounds (X4.), non distended (X4.), non tender (X4.). Absent: tenderness (x4.), distended (x4.), rebound, guarding, firm, rigid, organomegaly, mass, hernia Comments: no ascites, jaundice, distension. - Routine Exam Comments: no tenderness over bladder area. no clinical evidence of upper or lower UTI at this time. - Routine Extremities Exam Comments: see above. - Routine Back/Spine/Pelvis Exam Comments: see the above. - Routine Musculoskeletal Exam Musculoskeletal: Present: no clubbing or cyanosis, no joint swelling, normal gait, no erythema, moving extremities well. Absent: joint erythera, joint swelling - Routine Skin Exam Present: intact Comments: no skin changes from previous to uncovered areas. - Routine Neurological Exam Present: alert, oriented X3, CN II-XII intact CN2-12 normal. sensation/motor/muscle strength/DTR's normal and symmetrical b/ l X4. no clinical evidence of upper motor neuron lesions at this time. PERRLA. EOMI. no nystagmus. consensual reflex in tact. proprioception and cerebellar function in tact. affect and cognition unchanged from previous except a bit more anxious. no clinical evidence of homicidal/suicidal ideations , delerium, depression, psychosis, juliette, confusion, changes in cognition from usual baseline, altered mentation, obtundation. - Routine Lymphatic Exam Lymphatic: Absent: lymphedema - Routine Psychiatric Exam Present: normal affect, normal thought process (for patient.), cooperative. Absent: suicidal ideation, homicidal ideation, auditory hallucinations, visual hallucinations, tactile hallucinations, depressed, anxious, agitated, paranoid, manic Comments: see above as well. Results - Labs CBC & Chem 7: 11/06/17 04:54 11/06/17 04:54 Assessment and Plan Assessment and Plan: sinus tachycardia, lightheadedness, hypertension, likely secondary to anxiety but full workup pending. this is essentially resolved now. acute bilateral pulmonary emboli with surrounding mild noncardiogenic pulmonary edema, improving. hypertension and sinus tachycardia with diffuse T-wave inversions from the above. questionable hemoptysis versus hematemesis secondary to the above. chronic mild multifactorial anemia mild non-fasting elevation on blood sugar on admission chronic tobaccoism COPD borderline cognitive function -continue inpatient, routine vitals with call parameters, I's and O's, telemetry, regular diet, up as tolerated, continuous pulse oximetry. continue to monitor for bleeding. obtain rhythm strip. continue ambulating TID with assist. home health consulted as outpatient. HR now back down to normal and patient no longer lightheaded. he does admit to being anxious. cardiovascular and neurologic exam reassuring at this time. -cbc's stable in general as compared to as are cmp's. troponin X1 negative. EKG done just now unchanged from previous baseline and non-acute. cadiology evaluation as outpatient a consideration. see previous notes for other testing and results from this stay. -cbc, cmp in the AM. troponins X2 more sets ordered with call parameters. non contrast CT head unremarkable thus far by my read but final report pending. no contrast CT chest pending. -continue PO xarelto. continue IV fentanyl prn pain, duonebs prn, nicotine patch, milk of magnesia prn, colace prn, tylenol prn, PO BID protonix. X1 dose of 2.5mg metoprolol given IV by hospitalist and do appreciate them seeing patient while I worked to get here. this appears to have helped HR and bp. will give some labetalol prn IV. -Dr. Jiménez of pulmonology consulted. agrees with current management. transitioned to xarelto already. recheck CT chest in 2 months. get PFT's as outpatient. otherwise continue as is ordered. -further management pending the above. constipation -continue home colace prn and milk of magnesia prn. all other chronic medical issues stable and no other changes to plan of care at this time ppx -xarelto as above for DVT and this would serve as DVT prophylaxis as well. -PO diet and protonix noted in the above for GI ppx. -FULL CODE -dispo follow on the above will be here throughout the weekend. still hoping for discharge tomorrow. DVT Prophylaxis: Xarelto GI Prophylaxis: Protonix (see above.), other Resuscitation Status: Full Code - Time spent with patient Time with patient PN: 25 minutes Sepsis Assessment - Evaluation Severe Sepsis: none seen
[2017-11-06] MEDS ORDERED: LABETALOL 100mg/20ml INJECTION IVP PRN (16:00)
[2017-11-06] MEDS: RIVAROXABAN 20 MG TABLET PO SCH ×2 (16:21→17:17)
[2017-11-06] MEDS: TAMSULOSIN 0.4 MG CAPSULE PO SCH (20:57)
[2017-11-06 23:32] VITALS: TEMP 97
[2017-11-07] MEDS: PANTOPRAZOLE 40 MG TABLET PO SCH (06:27)
[2017-11-07 07:19] VITALS: BP 141/87; RESP 16
[2017-11-07 08:23] VITALS: PULSE 97
[2017-11-07] MEDS: NICOTINE PATCH REMOVAL TD SCH (08:35)
[2017-11-07] MEDS: NICOTINE 14 MG PATCH TD SCH (08:35)
--- NOTE | 2017-11-07 08:49 | CT Scan Report ---
Indication: increase bp/ pulse PROCEDURE: CT chest wo con: Encounter: Initial Comparison: 11/02/2017 Findings: There is some evolving atelectasis and/or pulmonary infarct in the posterior inferior left lung base. Overall heart size is normal. There is no definite right pleural effusion. There is a trace left pleural effusion. No pericardial effusion. There is a tracheostomy mucous along the right side of the lower trachea. There is no evidence for bronchial occlusion. No mediastinal or hilar adenopathy. No definite axillary adenopathy. No definite supraclavicular adenopathy. Impression: Probable residua of recent pulmonary infarct with left pleural effusion and left basilar atelectasis. Follow-up to resolution is recommended. .
--- NOTE | 2017-11-07 08:50 | CT Scan Report ---
Indication: increase bp and pulse PROCEDURE: CT head/brain wo con: Encounter: Initial Comparison: None. Findings: The ventricles and sulci are normal. There is no mass, mass effect, or midline shift. No evidence for intracranial hemorrhage. No intra, or extra-axial fluid collections. There is normal aeration of the paranasal and mastoid sinuses. There is no definite skull fracture or bony destructive process. IMPRESSION: Normal head CT without contrast. No evidence for acute cortical infarct, intracranial hemorrhage, or mass. .
--- NOTE | 2017-11-07 09:44 | Pulmonology Progress Note ---
Subjective Interval history: Pt in bed, states breathing doing ok, no SOB, no cough noted, wanting to go home. Exam Vital signs: Temperature 97.0 F 11/06/17 23:31 Pulse Rate 97 11/07/17 08:00 Respiratory Rate 16 11/07/17 07:18 Blood Pressure 141/87 H 11/07/17 07:18 Pulse Oximetry 96 11/07/17 07:18 Inpatient Medications: Generic Name Dose Route Start Last Admin Trade Name Freq PRN Reason Stop Dose Admin Acetaminophen 325 - 650 mg 11/04/17 09:55 11/05/17 20:19 Tylenol PO 650 mg Q5H PRN Administration Discomfort Albuterol/Ipratropium 3 ml 11/02/17 19:35 Duoneb AEROSOL RTQID PRN Shortness of air/wheezing Docusate Sodium 100 mg 11/02/17 21:33 11/04/17 06:21 Colace PO 100 mg BID PRN Administration Constipation /Stool softening Fentanyl 25 mcg 11/03/17 11:30 11/06/17 14:11 Sublimaze IVP 25 mcg Q1HR PRN Administration Pain Labetalol HCl 10 - 20 mg 11/06/17 16:00 11/06/17 15:42 Trandate IVP 20 mg Q6H PRN Administration Hypertension Lorazepam 0.5 mg 11/06/17 16:16 11/06/17 16:18 Ativan Inj IVP 0.5 mg Q6H PRN Administration Magnesium Hydroxide 30 ml 11/04/17 06:20 11/04/17 06:21 Mom PO 30 ml DAILY PRN Administration Constipation Nicotine 14 mg 11/04/17 15:15 11/07/17 08:35 Nicoderm TD 14 mg DAILY KRYSTYNA Administration Nicotine 1 removal 11/04/17 15:15 11/07/17 08:35 Nicotine Patch Removal TD 1 removal DAILY KRYSTYNA Administration Pantoprazole Sodium 40 mg 11/05/17 06:30 11/07/17 06:27 Protonix Tab PO 40 mg ACBID KRYSTYNA Administration Rivaroxaban 20 mg 11/05/17 20:00 11/06/17 17:17 Xarelto PO Not Given WS KRYSTYNA Sodium Chloride 10 - 80 ml 11/02/17 17:01 11/04/17 18:43 Iv Flush IVF 10 ml PRN PRN Administration Flushing Tamsulosin HCl 0.4 mg 11/02/17 21:00 11/06/17 20:57 Flomax PO 0.4 mg HS KRYSTYNA Administration Discontinued Medications Generic Name Dose Route Start Last Admin Trade Name Rommelq PRN Reason Stop Dose Admin Enoxaparin Sodium 65 mg 11/02/17 18:18 11/02/17 18:21 Lovenox SQ 11/02/17 18:19 65 mg O ONE Administration Enoxaparin Sodium 60 mg 11/02/17 21:00 11/05/17 10:14 Lovenox SQ 60 mg BID KRYSTYNA Administration Fentanyl 50 mcg 11/02/17 18:23 11/02/17 18:26 Fentanyl IVP 11/02/17 18:24 50 mcg O ONE Administration Fentanyl 25 mcg 11/02/17 19:26 11/03/17 07:16 Fentanyl IVP 25 mcg Q1HR PRN Administration Pain Ketorolac Tromethamine 60 mg 11/02/17 15:47 11/02/17 15:53 Toradol Inj IM 11/02/17 15:48 60 mg O ONE Administration Labetalol HCl 10 - 20 mg 11/06/17 14:12 Trandate IVP Q6H PRN Hypertension Metoprolol Tartrate 2.5 mg 11/06/17 13:14 11/06/17 13:44 Lopressor IVP 11/06/17 13:15 2.5 mg ONCE ONE Administration Nicotine 14 mg 11/03/17 09:00 11/03/17 09:22 Nicoderm TD 14 mg DAILY [facility] Administration Pantoprazole Sodium 40 mg 11/02/17 19:45 11/04/17 09:38 Protonix Iv IVP 40 mg BID KRYSTYNA Administration - Constitutional no acute distress, average body habitus, cooperative - Routine HEENT Exam Head: Present: normocephalic, atraumatic Eye: Present: EOMI, PERRL ENT: Present: mucous membranes moist - Routine Neck Exam Present: supple, full ROM, trachea midline - Routine Respiratory Exam Present: decreased breath sounds. Absent: accessory muscle use, patient mechanically ventilated - Routine Cardiovascular Exam Present: RRR, S1, S2, no murmur - Routine Abdominal Exam Present: soft, normoactive bowel sounds - Routine Extremities Exam Present: no edema, non tender, full ROM. Absent: cyanosis, clubbing, edema - Routine Back/Spine/Pelvis Exam Back/Spine: Present: full ROM - Routine Skin Exam Present: intact, dry - Routine Neurological Exam Present: alert, oriented X3, CN II-XII intact - Routine Psychiatric Exam Present: normal affect, normal thought process Results - Laboratory Findings Laboratory: Laboratory Results - last 48 hr 11/06/17 11/06/17 11/06/17 04:54 04:54 13:31 WBC 6.0 RBC 3.89 L Hgb 12.6 L Hct 37.1 L MCV 95.4 MCH 32.4 MCHC 34.0 RDW Std Deviation 42.6 Plt Count 303 MPV 9.8 Immature Gran % (Auto) 0.2 Neut % (Auto) 43.2 Lymph % (Auto) 38.9 Blaine % (Auto) 12.5 H Eos % (Auto) 4.5 H Baso % (Auto) 0.7 Neut # (Auto) 2.6 Lymph # (Auto) 2.3 Blaine # (Auto) 0.8 Eos # (Auto) 0.3 Baso # (Auto) 0.0 Abs Immat Gran (auto) 0.01 Turbidity < 20 Sodium 143 Potassium 3.6 Chloride 108 H Carbon Dioxide 26 Anion Gap 9 BUN 10.0 Creatinine 0.8 GFR Calculation 101 BUN/Creatinine Ratio 13 Glucose 97 Calculated Osmolality 274 Calcium 9.0 Total Bilirubin < 0.10 L Icterus Index < 2 AST 13 L ALT 12 Alkaline Phosphatase 53 Troponin I < 0.012 Total Protein 6.1 L Albumin 3.4 L Globulin 2.7 Albumin/Globulin Ratio 1.3 Specimen Hemolysis < 15 < 15 11/06/17 11/07/17 11/07/17 20:24 04:18 04:18 WBC 6.6 RBC 3.99 L Hgb 12.9 L Hct 37.8 L MCV 94.7 MCH 32.3 MCHC 34.1 RDW Std Deviation 42.9 Plt Count 334 MPV 9.7 Immature Gran % (Auto) 0.3 Neut % (Auto) 50.6 Lymph % (Auto) 34.1 Blaine % (Auto) 11.2 H Eos % (Auto) 3.2 Baso % (Auto) 0.6 Neut # (Auto) 3.3 Lymph # (Auto) 2.3 Blaine # (Auto) 0.7 Eos # (Auto) 0.2 Baso # (Auto) 0.0 Abs Immat Gran (auto) 0.02 Turbidity < 20 Sodium 145 H Potassium 3.5 L Chloride 106 Carbon Dioxide 28 Anion Gap 11 BUN 7.0 L Creatinine 0.8 GFR Calculation 101 BUN/Creatinine Ratio 9 Glucose 110 Calculated Osmolality 278 Calcium 9.2 Total Bilirubin 0.20 Icterus Index < 2 AST 18 ALT 18 Alkaline Phosphatase 55 Troponin I < 0.012 < 0.012 Total Protein 6.5 Albumin 3.6 Globulin 2.9 Albumin/Globulin Ratio 1.2 Specimen Hemolysis < 15 < 15 Assessment and Plan - Assessment and Plan Pulmonary Embolism w/infarct Abnormal CT chest Likely COPD Plan: Pt currently on RA without SOB noted. On xarelto 20mg daily for PE. CT showed parenchymal densities LLL that likely relate to the pulmonary infarction, would recommend a 2-[address] to ensure improvement and/or resolution. Also recommend OP PFT at that time to assess severity of COPD. PRN a/a ordered QID, hasn't required. Home when stable per primary - Time Spent With Patient Total time spent is greater than 50% in coordination of care (as documented) at patient's floor/unit and/or counseling patient: less than 15 minutes
--- NOTE | 2017-11-07 12:08 | Progress Note ---
- Date 11/07/17 Subjective: no acute issues overnight. patient doing well. denies lightheadedness since yesterday. vitals have been generally stable. denies headaches, stroke symptoms, focal neurologic deficits, fevers, chills, body aches, fatigue, weakness, ear pain, sinus pain, sore throat, runny nose, skin changes, new rashes, boggy/painful/swollen/painful focal joints or muscle groups. no vision changes, chest pain, SOA, orthopnea, PND, new edema, leg asymmetry, changes in exertional tolerance. no syncope, near-syncope, dizziness as noted. no cough, sputum production. no hemoptysis. no abdominal pain, GERD symptoms, nausea, vomiting, diarrhea, constipation, bloody/black stools, GI aira symptoms, hematemesis, coffee ground emesis, night sweats, constitutional symptoms, ddysuria, hematuria, urinary frequency, flank pain, nocturia, urinary/bowel incontinance, urinary retention, obtundation, confusion, altered mentation, depression, anxiety, delusions, psychosis symptoms, delerium symptoms, hallucinations, manic symptoms. denies homicidal/suicidal ideations. no left abdominal/side pain and this has resolved. no back pain or chest pain as noted. no new issues otherwise at this time. Objective Vital signs: Temperature 97.0 F 11/06/17 23:31 Pulse Rate 97 11/07/17 08:00 Respiratory Rate 16 11/07/17 07:18 Blood Pressure 141/87 H 11/07/17 07:18 Pulse Oximetry 97 11/07/17 11:45 Rhythm: Normal Sinus Rhythm Height/Weight/BMI: Height 1.6 m Weight 63 kg Body Mass Index 24.4 - Constitutional Present: no acute distress - Routine HEENT Exam Head: Present: normocephalic, atraumatic Eye: Present: EOMI, PERRL ENT: Present: mucous membranes moist - Routine Respiratory Exam Present: CTA bilaterally. Absent: accessory muscle use, patient mechanically ventilated, dyspnea, decreased breath sounds, prolonged expiratory phase, rales , respiratory distress, rhonchi, stridor, wheezes, crackles, distant breath sounds, diminished air movement Comments: lung sounds heard in all lung katz b/l at this time. all findings above bilateral unless otherwise noted. - Routine Cardiovascular Exam Present: RRR Comments: no new murmurs. no LE edema b/l at this time. clinically well perfused in all 4 extremities b/l at this time. no boggy/inflammed/swollen focal joints or muscle groups. - Routine Abdominal Exam Present: soft (X4.), normoactive bowel sounds (x4.), non distended (X4.), non tender (X4.). Absent: tenderness (X4.), distended (X4.), rebound, guarding, firm, rigid, organomegaly, mass Comments: no ascites, jaundice, distension. - Routine Exam Comments: no tenderness over bladder area. - Routine Extremities Exam Present: no edema, non tender. Absent: cyanosis, joint swelling, pallor, extremity cold to touch - Routine Back/Spine/Pelvis Exam Comments: no back pain at this time. no clinical evidence of upper or lower UTI at this time. - Routine Musculoskeletal Exam Musculoskeletal: Present: no tenderness, no erythema, moving extremities well. Absent: joint erythera, joint swelling - Routine Skin Exam Present: intact Comments: no skin changes from previous to uncovered areas. no pallor or cyanosis of extremities. - Routine Neurological Exam Present: alert, oriented X3, CN II-XII intact CN2-12 normal. sensation/motor/muscle strength/DTR's normal and symmetrical b/ l X4. no clinical evidence of upper motor neuron lesions at this time. PERRLA. EOMI. no nystagmus. consensual reflex in tact. affect and cognition unchanged from previous. no clinical evidence of homicidal/suicidal ideations, delerium, depression, psychosis, julitete, confusion, changes in cognition from usual baseline, altered mentation, obtundation. - Routine Lymphatic Exam Lymphatic: Absent: lymphedema - Routine Psychiatric Exam Present: normal affect, normal thought process (as compared to patient's usual baseline. ), cooperative. Absent: suicidal ideation, homicidal ideation, auditory hallucinations, visual hallucinations, tactile hallucinations, depressed, anxious, agitated, paranoid, manic Comments: see the above as well. Results - Labs CBC & Chem 7: 11/07/17 04:18 11/07/17 04:18 Assessment and Plan Assessment and Plan: acute bilateral pulmonary emboli with surrounding mild noncardiogenic pulmonary edema, improving. sinus tachycardia, lightheadedness, hypertension, likely secondary to anxiety but full workup pending. this is essentially resolved now. incidental mention of foreign body versus mucous on CT chest yesterday. hypertension and sinus tachycardia with diffuse T-wave inversions from the above. questionable hemoptysis versus hematemesis secondary to the above. chronic mild multifactorial anemia mild non-fasting elevation on blood sugar on admission chronic tobaccoism COPD borderline cognitive function -discharge to home today. rhythm strip from yesterday all with sinus tachycardia. patient stable. discharge with home health. get Navjot [facility] from [facility] to follow patient as well. events from yesterday likely related to anxiety. bp better today and in 140's/70's today. will follow as outpatient in a few days. cardiovascular and neurologic exam/history reassuring at this time. -cbc's stable in general as compared to as are cmp's. troponins X3 negative. cadiology evaluation as outpatient a consideration. see previous notes for other testing and results from this stay. -continue PO xarelto. d/c IV fentanyl prn pain. continue tylenol prn pain. d/c duonebs and continue current albuterol inhaler prn. d/c nicotine as patient notes he's just going back to smoking as outpatient. he was consulted at length about smoking cessation. d/c milk of magnesia prn continue current colace prn. d/c protonix BID and convert to one PO daily. d/c labetalol IV prn on discharge. will track bp in a couple of days as outpatient and go from there. -Dr. Jiménez of pulmonology consulted. agrees with current management. recheck CT chest in 2 months. get PFT's as outpatient. otherwise continue as is ordered. feeling foreign substance on CT chest yesterday mucous and no indication for further workup at this time immediately. get patient non -contrast CT scan chest in 2 months and PFT's in one month. RTC with Dr. Jiménez in 2 months. -further management pending the above. constipation -continue home colace prn. all other chronic medical issues stable and no other changes to plan of care at this time ppx -xarelto as above for DVT and this would serve as DVT prophylaxis as well. -PO diet and protonix noted in the above for GI ppx. -FULL CODE -dispo discharge to home today. DVT Prophylaxis: Xarelto, other (ambulate TID.) GI Prophylaxis: Protonix, other (PO diet.) Resuscitation Status: Full Code - Time spent with patient Time with patient PN: 50 minutes Sepsis Assessment - Evaluation Severe Sepsis: none seen
[2017-11-07 15:52] VITALS: O2SAT 96
--- NOTE | 2017-11-08 13:08 | Discharge Summary ---
DATE OF ADMISSION 11/02/2017 DATE OF DISCHARGE 11/07/2017 MODE OF ADMISSION Inpatient ATTENDING PHYSICIAN Dr. Chapman of [facility] ADMITTING PHYSICIAN Dr. Chapman of [facility] CONSULTING PHYSICIAN Dr. Eddie Jiménez of Pulmonary Medicine ANCILLARY SERVICES DURING THIS STAY Case Management (Case Management's input was very much appreciated) and Home Health. Home Health DISCHARGE DIAGNOSES 1. Acute bilateral pulmonary emboli with surrounding mild noncardiogenic edema. 2. Bouts of sinus tachycardia, lightheadedness, hypertension, which are likely secondary to anxiety as well as the pulmonary emboli. It has resolved by discharge. 3. Incidental mention of foreign body versus mucus on CT chest of yesterday. Review of systems and physical exam negative for aspiration. This likely represents mucus and secretions. 4. T-wave inversions in the precordial leads and otherwise diffusely on admission, likely from the pulmonary emboli. Troponins were negative. 5. Questionable hemoptysis/hematemesis secondary to diagnosis #1. 6. Chronic mild multifactorial anemia. 7. Mild nonfasting elevation of blood sugar on admission. 8. Chronic tobaccoism. 9. COPD. 10. Borderline cognitive function. 11. Constipation. DISCHARGE MEDICINES 1. Tylenol 325-650 mg p.o. q.6h. p.r.n. pain x 7 days with no refills. 2. Colace 100 mg p.o. b.i.d. p.r.n. constipation x 30 days with two refills. 3. Protonix 40 mg p.o. daily before breakfast. 4. Xarelto 20 mg p.o. daily. The patient will need to be on this for anywhere from 3-6 months. 5. Flomax 0.4 mg p.o. q.h.s. 6. Invega Sustenna 1 unit subcutaneously every 30 days. 7. Ventolin HFA 90 mcg, 1-2 puffs inhaled q.6h. p.r.n. shortness of air/ wheezing. 8. The patient's Reglan and baclofen from prehospitalization were discontinued. Please note that the patient's above-listed Tylenol, docusate, Xarelto, Protonix are new medicines. CONDITION ON DISCHARGE: The patient is discharged under the care of his mother to his home in stable and good condition. DIET: Cardiac and low sodium. ACTIVITY: As tolerated. INSTRUCTIONS TO PATIENT: The patient was instructed if he has any chest pain or abdominal pain that he be seen immediately. The patient told that if any of his IV sites become swollen, painful, red, inflamed that he will let us know right away. ORDERS TO NURSING 1. An order is given to nursing to please discontinue all lines, IVs and telemetry the patient did not come in on before discharge. 2. An order is given to nursing to set patient up for a noncontrast CT of the chest at [facility] in 2 months and send a copy of this to Dr. Chapman and Dr. Jiménez. 3. They are to make sure that Home Health is coming out daily to make sure patient is taking medication appropriately. 4. The patient will be set up with pulmonary function testing with Dr. Jiménez in 1 month. If any issues were should worsen and/or new ones occur, the patient will be seen immediately. If the patient cannot access his medications and/or make his appointments, he will let us know right away. EXPECTED SIGNS/SYMPTOMS 1. Patient instructed that his shortness of breath, coughing up blood, left-side /abdominal pain, dizziness should all stay resolved. 2. Patient ordered to return to care immediately if any dizziness, chest pain, shortness of breath, vision changes, headaches, confusion, back pain should occur. He was also told by myself to return to care immediately if he starts coughing or throwing up any blood or coffee-ground material. He was also told to return to care immediately if any confusion occurs. Numbers given to contact physician both during and after business hours. For pending lab results the patient will follow with provider. For [employer] appointments. The patient was consulted extensively on smoking cessation this stay and he does refuse. FOLLOWUP APPOINTMENTS 1. The patient will follow up with Dr. Jiménez of Pulmonology in 2 months with the above-noted testing. 2. The patient will follow up with myself, Dr. Chapman, on 11/11/2017 with a CBC and CMP done the day before and sent to him. PERTINENT VITAL SIGNS DURING THE STAY The patient's blood pressure did spike as high as the 180s-200 systolic during periods of anxiety. This came down with some p.r.n. IV labetalol and was 141/ 87 on discharge. It was generally well-controlled the day of discharge. The patient's heart rate would increase as well. This was sinus tachycardia per EKGs and on the telemetry. It did get as high as the 130s-140s when he was ambulating. This was likely from his pulmonary emboli and also the anxiety. This had also markedly improved by the day of discharge. The patient was afebrile throughout his stay and his oxygen saturations were all good on room air. Respirations were always within normal limits. LABORATORY DONG DURING THE STAY The patient's white blood cell count was normal throughout. The patient's hemoglobin ranged anywhere from 12.2 to 13.2 and was 12.9 by discharge. Hematocrit was generally stable in the 37s and 38s. Platelets were normal while here. Otherwise, differentials were otherwise in the patient's CBCs. The patient's sodiums, potassiums, chlorides, acid base status was normal while here. Kidney function was normal throughout as was the patient's calcium and liver functions testing. Blood sugars were generally normal while here. Troponins were negative on admission and negative x 3 for 24 hours before discharge. Protein indices in the patient's complete metabolic panel were unremarkable. Urinalysis on admission was effectively normal. There were no cultures done during the stay. The patient's blood type was A negative and the antibody screen was negative. PERTINENT IMAGING AND OTHER TESTING DONE DURING THE STAY The patient's EKG on admission was notable for sinus tachycardia and diffuse and nonspecific T-wave inversions likely secondary to the patient's pulmonary emboli. Subsequent EKGs did show some T-wave inversions in the precordial leads which were likely chronic and the patient's troponins were negative. He was chest pain-free throughout the rest of his stay. This can be followed further as an outpatient. Chest x-ray, PA and lateral, on admission on 11/02/2017 was notable for some slightly worsening left lower lobe atelectasis. This prompted a CT of the chest with PE protocol. This showed bilateral areas of pulmonary emboli in the lower lobe pulmonary arteries with evidence of thrombosis in the left lower lobe pulmonary veins. There was probable pulmonary hemorrhage and developing pulmonary infarcts in the left lower lobe. A noncontrast CT of the chest was done the day before discharge for the complaints of the patient's lightheadedness and tachycardia as well as hypertension and this essentially looked stable. It did mention a nonspecific density in the trachea which was likely secondary to mucous plugging. This was discussed with Pulmonary. Echocardiogram done on 11/03/2017 showed a normal ejection fraction of 55%. There was a trace amount of tricuspid regurgitation and a pulmonary artery pressure of 19. There was trace pulmonary insufficiency. Otherwise, it was normal. CT of the head done the day before discharge for the same complaints noted above was unremarkable for any acute condition. PERTINENT PHYSICAL EXAM FINDINGS DURING THE STAY The patient's lungs and respiratory exam as well as a neurologic exam were all unremarkable throughout the patient's stay. HISTORY OF PRESENT ILLNESS AND HOSPITAL COURSE This is a pleasant 52-year-old male known to our clinic. He does have a history of tobacco use and smoking. He was in his usual state of health up until a few days previous to admission. He had had nonspecific chest and left lower side/abdominal pain on and off. He had been seen in the ER a couple of times and some atelectasis was noted but was not considered to be pathologic. The day of admission he developed more chest pain. A CT of the chest with pulmonary embolism protocol was done and the above findings were noted. The patient was admitted and an extensive imaging and laboratory evaluation undertaken as noted above. The patient was initially put on Lovenox. He was eventually transitioned to Xarelto. There was no evidence of right heart failure problems. He noted some trace hemoptysis/possible hematemesis, but this was not clear. He did note this resolved two days previous to discharge. It did note some evidence of mild pulmonary infarct. Pulmonary was consulted as well and agreed with current management. The patient will get the CT and pulmonary functions tests at the times noted above. The patient was chest pain- free and free of left lower abdominal pain throughout the rest of his stay. He was breathing well throughout the rest of his stay and his vitals were stable as noted above. He will be on anticoagulation for between 3 and 6 months as noted above. He was put on the Protonix IV initially and then converted to oral as there was questionable mention of hemoptysis. He did not have any gastrointestinal reflux symptoms throughout his stay. Will continue him on this as an outpatient and see how he does. The patient did have bouts of sinus tachycardia as well as lightheadedness and hypertension at times over the day previous to discharge. An extensive workup including a CT of the chest and head as well as EKGs, troponins were all unremarkable and these resolved with low doses of Ativan and IV labetalol. He was not requiring any of these p.r.n. medicines the day of discharge and his blood pressure had improved. We will follow this closely as an outpatient and start blood pressure medicines as might be needed at that time. He was not having any lightheadedness. This appears likely secondary to anxiety. The tachycardia did seem to occur more when he was ambulating which would be consistent with his pulmonary emboli. On the day of discharge he was ambulating well without any symptoms. This will be followed as an outpatient. In regard to the incidental mention of mucus in the patient's trachea on the CT scan noted above. Consulted Pulmonary on this and they did not feel that anything else was needed immediately. There was no clinical evidence of aspiration from history or physical exam while here. In regard to the patient's chronic multifactorial anemia. This will be followed as an outpatient as noted above. Hemoglobin was stable while here. The patient did have some mild nonfasting elevation of blood sugar on admission. The rest of his blood sugars looked unremarkable and will be followed as above as an outpatient. The patient does have a history of COPD. Will continue the albuterol inhaler noted above and this did not play significantly into his hospitalization. There was no clinical evidence of an exacerbation here. The patient does have borderline cognitive dysfunction and this was a factor in his stay. Home Health was consulted and the patient will be going home with his mother to help with compliance. We did keep him over the weekend to make sure we could get him set up with Home Health. In regards to the patient's constipation. He was maintained on Colace p.r.n. and milk of magnesium. He was having bowel movements normally while here. All other chronic medical conditions stable and no changes to plan of care at this time. The patient was on Xarelto as noted above for DVT prophylaxis and the DVT treatment as well. The patient was on an oral diet and Protonix for GI prophylaxis while here. The patient was a FULL CODE while here. DISPOSITION Discharge to home today in stable and good condition. INDIGO
== END 2017-11-07 16:11 | disposition home or self-care (01) | DRG 176 ==
LOC: ED 15:26 → MED 18:19
PROVIDERS: ADMIT Internal Medicine; ATTEND Internal Medicine